=== PATIENT | female | born 1950 | race Caucasian/White ===

== ENCOUNTER 2020-11-12 09:14 | Outpatient (REF) | payer MEDICARE, OTHER, SELFPAY ==
[2020-11-12 10:32] LABS: Alanine Aminotransferase 27 U/L (0-31); Albumin Level 4.5 g/dL (3.5-5.0); Alkaline Phosphatase 81 U/L (39-117); Anion Gap 12 (12-20); Aspartate Amino Transferase 32 U/L (5-31); Bilirubin Total 0.4 mg/dL (0.0-1.0); Blood Urea Nitrogen 18 mg/dL (9-16); Calcium 9.8 mg/dL (8.4-10.2); Carbon Dioxide 30 mmol/L (22-29); Chloride 102 mmol/L (96-108); Cholesterol 251 mg/dL; Estimated Glomerular Filt Rate > 60; Glucose Fasting 101 mg/dL (60-99); HDL Cholesterol 63 mg/dL; LDL Cholesterol Calculated 169 mg/dl; Potassium 4.9 mmol/l (3.3-5.1); Sodium 139 mmol/L (135-145); Total Protein 7.8 g/dL (6.5-8.0); Triglycerides 98 mg/dL
[2020-11-12 10:48] LABS: Free T4 (Free Thyroxine) 1.17 ng/dL (0.71-1.85); Thyroid Stimulating Hormone 4.11 uIU/mL (0.32-4.0)
== END 2020-11-12 09:15 | disposition home or self-care (01) ==
LOC: HO.LAB 09:14
PROVIDERS: PCP Internal Medicine; Visit Provider Internal Medicine
DX: E78.00 Pure hypercholesterolemia, unspecified (principal); E03.9 Hypothyroidism, unspecified; E55.9 Vitamin D deficiency, unspecified
CPT/HCPCS: 36415; 80053; 80061; 82306; 84439; 84443

== ENCOUNTER 2021-01-10 08:16 | Outpatient (REF) | payer MEDICARE, OTHER, SELFPAY ==
[2021-01-10 09:35] LABS: Basophils Absolute Auto 0.1 X10*3/uL (0.0-0.2); Basophils Percent Auto 0.6 % (0-2); Eosinophils Absolute Auto 0.2 X10*3/uL (0.0-0.4); Eosinophils Percent Auto 2.4 % (0-4); Hematocrit 40.9 % (37-47); Hemoglobin 13.1 g/dl (12.0-16.0); Imm Gran Abs Auto 0.01 X10*3/uL (0.00-0.03); Imm Gran Pct Auto 0.1 % (0.0-0.4); Lymphocytes Absolute Auto 2.7 X10*3/uL (1.2-4.9); Lymphocytes Percent Auto 33.6 % (20-40); MANUAL DIFF FLAG NO; Mean Corpuscular Hemoglobin 30.8 pg (27.0-33.0); Mean Corpuscular Volume 96.2 fL (80-98); Mean Platelet Volume 10.2 fL (9.4-12.3); Monocytes Absolute Auto 0.7 X10*3/uL (0.1-1.2); Monocytes Percent Auto 9.4 % (2-11); Neutrophils Absolute Auto 4.3 X10*3/uL (2.0-8.3); Neutrophils Percent Auto 53.9 % (45-73); Platelet Count 415 X10*3/uL (160-400); Red Blood Count 4.25 X10*6/uL (4.20-5.50); Red Cell Distribution Width 14.8 % (11.0-16.0); White Blood Count 7.9 X10*3/uL (4.8-10.8)
[2021-01-10 10:09] LABS: Alanine Aminotransferase 20 U/L (0-31); Albumin Level 4.2 g/dL (3.5-5.0); Alkaline Phosphatase 98 U/L (39-117); Anion Gap 12 (12-20); Aspartate Amino Transferase 29 U/L (5-31); Bilirubin Total 0.3 mg/dL (0.0-1.0); Blood Urea Nitrogen 17 mg/dL (9-16); Calcium 8.9 mg/dL (8.4-10.2); Carbon Dioxide 27 mmol/L (22-29); Chloride 107 mmol/L (96-108); Cholesterol 168 mg/dL; Estimated Glomerular Filt Rate > 60; Glucose Random 106 mg/dL (60-115); HDL Cholesterol 49 mg/dL; LDL Cholesterol Calculated 99 mg/dl; Potassium 4.7 mmol/L (3.3-5.1); Sodium 141 mmol/L (135-145); Total Protein 7.2 g/dL (6.5-8.0); Triglycerides 100 mg/dL
[2021-01-10 10:31] LABS: Vitamin D 25-OH Total 23.7 ng/mL (>30)
== END 2021-01-10 08:17 | disposition home or self-care (01) ==
LOC: HO.LAB 08:16
PROVIDERS: Absent Provider Physician Assistant; PCP Internal Medicine; Visit Provider Internal Medicine
DX: E78.00 Pure hypercholesterolemia, unspecified (principal); E55.9 Vitamin D deficiency, unspecified
CPT/HCPCS: 36415; 80053; 80061; 82306; 85025

== ENCOUNTER 2021-02-01 08:32 | Outpatient (REF) | payer MEDICARE, OTHER, SELFPAY ==
--- NOTE | ~2021-02-01 | MM_ITS ---
EXAMINATION: MM SCREENING DIGITAL BREAST TOMOSYNTHESIS, BILATERAL CLINICAL INFORMATION: Screening. Asymptomatic. The lifetime risk of breast cancer based on the Tyrer-Cuzick Model is 6%. COMPARISON: Mammography: 11/15/2019, 11/09/2018, 09/29/2017 TECHNIQUE: Digital breast tomosynthesis is performed in both the craniocaudal and mediolateral oblique views along with computer-aided detection (CAD). Synthesized 2D images are generated from the tomosynthesis. FINDINGS: There are scattered areas of fibroglandular density (ACR BI-RADS breast composition Category b). There are no significant masses, abnormal calcifications, or other abnormalities. The axilla and skin contours are unremarkable. No significant changes from prior exams. MM/MM tomosynthesis screening BI IMPRESSION: No mammographic evidence of malignancy. ASSESSMENT: BI-RADS 1: Negative RECOMMENDATION: Routine annual mammography screening. This patient's information was entered into a reminder system with a target due date for their next mammogram.
== END 2021-02-01 08:33 | disposition home or self-care (01) ==
LOC: HO.MAMMO 08:32
PROVIDERS: PCP Internal Medicine; Visit Provider Internal Medicine
DX: Z12.31 Encounter for screening mammogram for malignant neoplasm of breast (principal)
CPT/HCPCS: 77063; 77067

== ENCOUNTER 2021-05-01 12:00 | Outpatient (REF) | payer MEDICARE, OTHER, SELFPAY ==
[2021-05-01 12:52] LABS: Influenza A PCR NEGATIVE (Negative); Influenza B PCR NEGATIVE (Negative); Resp Syncy Virus RNA Qual PCR NEGATIVE (Negative); SARS COV2 PCR INHOUSE NEGATIVE (Negative)
== END 2021-05-01 12:01 | disposition home or self-care (01) ==
LOC: HO.LNP 12:00
PROVIDERS: Visit Provider Internal Medicine
DX: R68.89 Other general symptoms and signs (principal); R51.9 Headache, unspecified; Z20.822 Contact with and (suspected) exposure to COVID-19
CPT/HCPCS: 0241U

== ENCOUNTER 2021-08-01 09:35 | Outpatient (REF) | payer MEDICARE, OTHER, SELFPAY ==
[2021-08-01 09:47] LABS: MANUAL DIFF FLAG NO
[2021-08-01 09:58] LABS: Basophils Absolute Auto 0.1 X10*3/uL (0.0-0.2); Eosinophils Absolute Auto 0.2 X10*3/uL (0.0-0.4); Eosinophils Percent Auto 3.6 % (0-4); Hematocrit 44.1 % (37-47); Imm Gran Abs Auto 0.02 X10*3/uL (0.00-0.03); Imm Gran Pct Auto 0.3 % (0.0-0.4); Lymphocytes Absolute Auto 2.7 X10*3/uL (1.2-4.9); Lymphocytes Percent Auto 43.2 % (20-40); Mean Corpuscular HGB Conc 31.7 g/dl (31.0-35.0); Mean Corpuscular Hemoglobin 30.1 pg (27.0-33.0); Mean Corpuscular Volume 94.8 fL (80-98); Mean Platelet Volume 10.4 fL (9.4-12.3); Monocytes Absolute Auto 0.7 X10*3/uL (0.1-1.2); Monocytes Percent Auto 10.6 % (2-11); Neutrophils Absolute Auto 2.6 X10*3/uL (2.0-8.3); Neutrophils Percent Auto 41.3 % (45-73); Platelet Count 372 X10*3/uL (160-400); Red Blood Count 4.65 X10*6/uL (4.20-5.50); Red Cell Distribution Width 15.6 % (11.0-16.0); White Blood Count 6.2 X10*3/uL (4.8-10.8)
[2021-08-01 10:29] LABS: Estimated Average Glucose 108 mg/dL; Hemoglobin A1c % 5.4 %
[2021-08-01 10:34] LABS: Alanine Aminotransferase 22 U/L (0-31); Albumin Level 4.1 g/dL (3.5-5.0); Alkaline Phosphatase 77 U/L (39-117); Anion Gap 11 (12-20); Aspartate Amino Transferase 30 U/L (5-31); Bilirubin Total 0.7 mg/dL (0.0-1.0); Blood Urea Nitrogen 19 mg/dL (9-16); Calcium 9.5 mg/dL (8.4-10.2); Carbon Dioxide 27 mmol/L (22-29); Chloride 108 mmol/L (96-108); Cholesterol 189 mg/dL; Estimated Glomerular Filt Rate > 60; Glucose Fasting 108 mg/dL (60-99); HDL Cholesterol 55 mg/dL; LDL Cholesterol Calculated 112 mg/dl; Potassium 4.5 mmol/L (3.3-5.1); Sodium 141 mmol/L (135-145); Total Protein 7.3 g/dL (6.5-8.0); Triglycerides 110 mg/dL
[2021-08-01 11:00] LABS: Free T4 (Free Thyroxine) 1.36 ng/dL (0.71-1.85); Thyroid Stimulating Hormone 0.69 uIU/mL (0.32-4.0); Vitamin D 25-OH Total 25.5 ng/mL (>30)
[2021-08-01 11:31] LABS: Creatinine Urine 104.76 mg/dL; Microalbum/Creatinine Ratio Ur 9.5 ug/mg cr
== END 2021-08-01 09:36 | disposition home or self-care (01) ==
LOC: HO.LAB 09:35
PROVIDERS: PCP Internal Medicine; Referring Provider Physician Assistant; Visit Provider Internal Medicine
DX: E78.00 Pure hypercholesterolemia, unspecified (principal); E03.9 Hypothyroidism, unspecified; R73.03 Prediabetes; E55.9 Vitamin D deficiency, unspecified
CPT/HCPCS: 36415; 80053; 80061; 82043; 82306; 83036; 84439; 84443; 85025

== ENCOUNTER 2022-11-03 08:25 | Outpatient (REF) | payer MEDICARE, OTHER, SELFPAY ==
[2022-11-03 08:45] LABS: MANUAL DIFF FLAG NO
[2022-11-03 08:54] LABS: Basophils Absolute Auto 0.1 X10*3/uL (0.0-0.2); Basophils Percent Auto 1.1 % (0-2); Eosinophils Absolute Auto 0.4 X10*3/uL (0.0-0.4); Eosinophils Percent Auto 6.8 % (0-4); Hematocrit 40.9 % (37.0-47.0); Hemoglobin 13.5 g/dl (12.0-16.0); Imm Gran Abs Auto 0.01 X10*3/uL (0.00-0.03); Imm Gran Pct Auto 0.2 % (0.0-0.4); Lymphocytes Absolute Auto 3.1 X10*3/uL (1.2-4.9); Lymphocytes Percent Auto 48.6 % (20-40); Mean Corpuscular Hemoglobin 31.3 pg (27.0-33.0); Mean Corpuscular Volume 94.7 fL (80.0-98.0); Monocytes Absolute Auto 0.6 X10*3/uL (0.1-1.2); Monocytes Percent Auto 9.1 % (2-11); Neutrophils Absolute Auto 2.2 x10*3/uL (2.0-8.3); Neutrophils Percent Auto 34.2 % (45-73); Platelet Count 385 X10*3/uL (160-400); Red Blood Count 4.32 X10*6/uL (4.20-5.50); Red Cell Distribution Width 14.9 % (11.0-16.0); White Blood Count 6.3 X10*3/uL (4.8-10.8)
[2022-11-03 09:26] LABS: Alanine Aminotransferase 33 U/L (0-31); Alkaline Phosphatase 93 U/L (39-117); Anion Gap 10 (12-20); Aspartate Amino Transferase 38 U/L (5-31); Bilirubin Total 0.4 mg/dL (0.0-1.0); Blood Urea Nitrogen 19 mg/dL (9-16); Calcium 9.3 mg/dL (8.4-10.2); Carbon Dioxide 26 mmol/L (22-29); Chloride 107 mmol/L (96-108); Cholesterol 217 mg/dL; Estimated Glomerular Filt Rate > 60; Glucose Fasting 128 mg/dL (60-99); HDL Cholesterol 58 mg/dL; LDL Cholesterol Calculated 127 mg/dl; Potassium 4.5 mmol/L (3.3-5.1); Sodium 138 mmol/L (135-145); Total Protein 7.1 g/dL (6.5-8.0); Triglycerides 162 mg/dL
[2022-11-03 09:45] LABS: Free T4 (Free Thyroxine) 0.87 ng/dL (0.71-1.85); Thyroid Stimulating Hormone 2.93 uIU/mL (0.32-4.0); Vitamin D 25-OH Total 19.8 ng/mL (>30)
== END 2022-11-03 08:26 | disposition home or self-care (01) ==
LOC: HO.LAB 08:25
PROVIDERS: Absent Provider Physician Assistant; PCP Internal Medicine; Visit Provider Internal Medicine
DX: E03.9 Hypothyroidism, unspecified (principal); E78.00 Pure hypercholesterolemia, unspecified; E55.9 Vitamin D deficiency, unspecified; L40.0 Psoriasis vulgaris; L29.8 Other pruritus; Z79.899 Other long term (current) drug therapy
CPT/HCPCS: 36415; 80053; 80061; 82306; 84439; 84443; 85025

== ENCOUNTER 2023-05-11 12:35 | Outpatient (REF) | payer MEDICARE, OTHER, SELFPAY ==
--- NOTE | ~2023-05-11 | MM_ITS ---
EXAMINATION: MM SCREENING DIGITAL BREAST TOMOSYNTHESIS, BILATERAL CLINICAL INFORMATION: Screening. Asymptomatic. The lifetime risk of breast cancer based on the Tyrer-Cuzick Model is 6.0%. COMPARISON: Mammography: This study is compared with prior exams dating back to 2017. TECHNIQUE: Digital breast tomosynthesis is performed in both the craniocaudal and mediolateral oblique views along with computer-aided detection (CAD). Synthesized 2D images are generated from the tomosynthesis. FINDINGS: There are scattered areas of fibroglandular density (ACR BI-RADS breast composition Category b). There are no significant masses, abnormal calcifications, or other abnormalities. MM/MM tomosynthesis screening BI IMPRESSION: No mammographic evidence of malignancy. ASSESSMENT: BI-RADS BI-RADS 1 - Negative RECOMMENDATION: Routine annual mammography screening. 1 year F/U This examination should not preclude the clinical evaluation of a suspicious palpable abnormality. This patient's information was entered into a reminder system with a target due date for their next mammogram.
== END 2023-05-11 12:36 | disposition home or self-care (01) ==
LOC: HO.MAMMO 12:35
PROVIDERS: PCP Internal Medicine; Visit Provider Internal Medicine
DX: Z12.31 Encounter for screening mammogram for malignant neoplasm of breast (principal)
CPT/HCPCS: 77063; 77067

== ENCOUNTER → 2023-05-11 12:45 | Outpatient (BNV) | payer MEDICARE, OTHER, SELFPAY | PROVIDERS: PCP Internal Medicine; Visit Provider Radiology Diagnostic Radiology | DX: Z12.31 Encounter for screening mammogram for malignant neoplasm of breast (principal) | CPT/HCPCS: 77063; 77067 ==

== ENCOUNTER 2023-07-26 11:33 | Outpatient (REF) | payer MEDICARE, OTHER, SELFPAY ==
[2023-07-26 11:55] LABS: MANUAL DIFF FLAG NO
[2023-07-26 12:01] LABS: Basophils Percent Auto 0.7 % (0-2); Eosinophils Absolute Auto 0.4 X10*3/uL (0.0-0.4); Eosinophils Percent Auto 5.8 % (0-4); Hematocrit 42.3 % (37.0-47.0); Hemoglobin 13.7 g/dl (12.0-16.0); Lymphocytes Absolute Auto 2.5 X10*3/uL (1.2-4.9); Mean Corpuscular HGB Conc 32.4 g/dl (31.0-35.0); Mean Corpuscular Hemoglobin 30.9 pg (27.0-33.0); Mean Corpuscular Volume 95.3 fL (80.0-98.0); Mean Platelet Volume 9.8 fL (9.4-12.3); Monocytes Absolute Auto 0.6 X10*3/uL (0.1-1.2); Monocytes Percent Auto 9.8 % (2-11); Neutrophils Absolute Auto 2.5 x10*3/uL (2.0-8.3); Neutrophils Percent Auto 41.7 % (45-73); Platelet Count 369 X10*3/uL (160-400); Red Blood Count 4.44 X10*6/uL (4.20-5.50); Red Cell Distribution Width 14.5 % (11.0-16.0)
[2023-07-26 13:09] LABS: Alanine Aminotransferase 20 U/L (0-31); Albumin Level 4.2 g/dL (3.5-5.0); Alkaline Phosphatase 96 U/L (39-117); Anion Gap 14 (12-20); Aspartate Amino Transferase 29 U/L (5-31); Bilirubin Direct 0.2 mg/dL (0.0-0.5); Bilirubin Total 0.5 mg/dL (0.0-1.0); Blood Urea Nitrogen 15 mg/dL (9-16); Calcium 9.5 mg/dL (8.4-10.2); Carbon Dioxide 25 mmol/L (22-29); Chloride 107 mmol/L (96-108); Estimated Glomerular Filt Rate > 60; Glucose Random 103 mg/dL (60-115); Potassium 4.5 mmol/L (3.3-5.1); Sodium 141 mmol/L (135-145); Total Protein 7.4 g/dL (6.5-8.0)
[2023-07-27 05:19] LABS: HBc Num1 0.06 S/CO (0.00-0.79); Hepatitis B Core Antibody Nonreactive (Nonreactive); Hepatitis B Surface Antigen Negative (Negative); ~HepC Num1 0.12 S/CO (0.00-0.79); ~Hepatitis B Surface Antibody REACTIVE (Nonreactive); ~Hepatitis C Antibody Nonreactive (Nonreactive)
[2023-07-28 19:34] LABS: TS Negative Control Passed; TS Panel A 0; TS Panel B 0; TS Positive Control Passed; TSpotTB Negative (Negative)
== END 2023-07-26 11:34 | disposition home or self-care (01) ==
LOC: HO.LAB 11:33
PROVIDERS: PCP Internal Medicine; Visit Provider Physician Assistant
DX: Z11.1 Encounter for screening for respiratory tuberculosis (principal); L40.0 Psoriasis vulgaris
CPT/HCPCS: 36415; 80048; 80076; 85025; 86481; 86704; 86706; 86803; 87340

== ENCOUNTER 2023-08-04 13:06 | Outpatient (REF) | payer MEDICARE, OTHER, SELFPAY | END 2023-08-04 13:07 | disposition home or self-care (01) | LOC: HO.MAMMO 13:06 | PROVIDERS: PCP Internal Medicine; Visit Provider Internal Medicine | DX: Z13.820 Encounter for screening for osteoporosis (principal); Z78.0 Asymptomatic menopausal state | CPT/HCPCS: 77080 ==

== ENCOUNTER 2023-12-31 07:48 | Outpatient (REF) | payer MEDICARE, OTHER, SELFPAY ==
[2023-12-31 08:08] LABS: MANUAL DIFF FLAG NO
[2023-12-31 08:54] LABS: Basophils Absolute Auto 0.1 X10*3/uL (0.0-0.2); Eosinophils Absolute Auto 0.5 X10*3/uL (0.0-0.4); Eosinophils Percent Auto 5.3 % (0-4); Hematocrit 44.2 % (37.0-47.0); Hemoglobin 14.6 g/dl (12.0-16.0); Imm Gran Abs Auto 0.01 X10*3/uL (0.00-0.03); Imm Gran Pct Auto 0.1 % (0.0-0.4); Lymphocytes Absolute Auto 4.6 X10*3/uL (1.2-4.9); Lymphocytes Percent Auto 51.7 % (20-40); Mean Corpuscular Hemoglobin 30.9 pg (27.0-33.0); Mean Corpuscular Volume 93.4 fL (80.0-98.0); Mean Platelet Volume 10.1 fL (9.4-12.3); Monocytes Absolute Auto 0.9 X10*3/uL (0.1-1.2); Monocytes Percent Auto 10.2 % (2-11); Neutrophils Absolute Auto 2.8 x10*3/uL (2.0-8.3); Neutrophils Percent Auto 31.7 % (45-73); Platelet Count 425 X10*3/uL (160-400); Red Blood Count 4.73 X10*6/uL (4.20-5.50); Red Cell Distribution Width 14.2 % (11.0-16.0); White Blood Count 8.9 X10*3/uL (4.8-10.8)
[2023-12-31 09:27] LABS: Estimated Average Glucose 123 mg/dL; Hemoglobin A1C 150.4285 umol/L; Hemoglobin A1c % 5.9 % (<6.0)
[2023-12-31 09:43] LABS: Alanine Aminotransferase 23 U/L (0-31); Albumin Level 4.3 g/dL (3.5-5.0); Alkaline Phosphatase 91 U/L (39-117); Anion Gap 12 (12-20); Aspartate Amino Transferase 31 U/L (5-31); Bilirubin Total 0.4 mg/dL (0.0-1.0); Blood Urea Nitrogen 15 mg/dL (9-16); Calcium 9.7 mg/dL (8.4-10.2); Carbon Dioxide 27 mmol/L (22-29); Chloride 107 mmol/L (96-108); Cholesterol 203 mg/dL (<200); Estimated Glomerular Filt Rate > 60; Glucose Fasting 113 mg/dL (60-99); HDL Cholesterol 58 mg/dL (>40); LDL Cholesterol Calculated 123 mg/dL (<100); Potassium 4.6 mmol/L (3.3-5.1); Sodium 141 mmol/L (135-145); Total Protein 7.7 g/dL (6.5-8.0); Triglycerides 112 mg/dL (<150)
[2023-12-31 09:49] LABS: Free T4 (Free Thyroxine) 1.38 ng/dL (0.71-1.85); Thyroid Stimulating Hormone 4.94 uIU/mL (0.32-4.0); Vitamin D 25-OH Total 30.5 ng/mL (>30)
== END 2023-12-31 07:49 | disposition home or self-care (01) ==
LOC: HO.LAB 07:48
PROVIDERS: PCP Internal Medicine; Visit Provider Internal Medicine
DX: E03.9 Hypothyroidism, unspecified (principal); E78.00 Pure hypercholesterolemia, unspecified; E55.9 Vitamin D deficiency, unspecified; R73.03 Prediabetes
CPT/HCPCS: 36415; 80053; 80061; 82306; 83036; 84439; 84443; 85025

== ENCOUNTER 2024-05-16 12:23 | Outpatient (REF) | payer MEDICARE, OTHER, SELFPAY | END 2024-05-16 12:24 | disposition home or self-care (01) | LOC: HO.MAMMO 12:23 | PROVIDERS: PCP Internal Medicine; Visit Provider Internal Medicine | DX: Z12.31 Encounter for screening mammogram for malignant neoplasm of breast (principal) | CPT/HCPCS: 77063; 77067 ==

== ENCOUNTER → 2024-05-16 12:30 | Outpatient (BNV) | payer MEDICARE, OTHER, SELFPAY | PROVIDERS: PCP Internal Medicine; Visit Provider Radiology Diagnostic Radiology | DX: Z12.31 Encounter for screening mammogram for malignant neoplasm of breast (principal) | CPT/HCPCS: 77063; 77067 ==

== ENCOUNTER 2025-01-29 08:23 | Outpatient (REF) | payer MEDICARE, OTHER, SELFPAY ==
[2025-01-29 08:36] LABS: MANUAL DIFF FLAG NO
[2025-01-29 10:00] LABS: Basophils Absolute Auto 0.1 X10*3/uL (0.0-0.2); Eosinophils Absolute Auto 0.3 X10*3/uL (0.0-0.4); Eosinophils Percent Auto 4.3 % (0-4); Hematocrit 43.5 % (37.0-47.0); Hemoglobin 13.9 g/dl (12.0-16.0); Imm Gran Abs Auto 0.01 X10*3/uL (0.00-0.03); Imm Gran Pct Auto 0.1 % (0.0-0.4); Lymphocytes Absolute Auto 3.1 X10*3/uL (1.2-4.9); Lymphocytes Percent Auto 44.3 % (20-40); Mean Corpuscular Hemoglobin 30.4 pg (27.0-33.0); Mean Corpuscular Volume 95.2 fL (80.0-98.0); Mean Platelet Volume 11.5 fL (9.4-12.3); Monocytes Absolute Auto 0.6 X10*3/uL (0.1-1.2); Neutrophils Absolute Auto 2.9 x10*3/uL (2.0-8.3); Neutrophils Percent Auto 41.3 % (45-73); Platelet Count 330 X10*3/uL (160-400); Red Blood Count 4.57 X10*6/uL (4.20-5.50); Red Cell Distribution Width 14.7 % (11.0-16.0)
[2025-01-29 10:14] LABS: Estimated Average Glucose 128 mg/dL; Hemoglobin A1c % 6.1 % (<6.0)
[2025-01-29 11:07] LABS: Alanine Aminotransferase 26 U/L (0-31); Alkaline Phosphatase 86 U/L (39-117); Anion Gap 11 (12-20); Aspartate Amino Transferase 36 U/L (5-31); Bilirubin Total 0.5 mg/dL (0.0-1.0); Blood Urea Nitrogen 16 mg/dL (9-16); Calcium 9.1 mg/dL (8.4-10.2); Carbon Dioxide 25 mmol/L (22-29); Chloride 108 mmol/L (96-108); Estimated Glomerular Filt Rate > 60; Free T4 (Free Thyroxine) 1.31 ng/dL (0.71-1.85); Glucose Random 112 mg/dL (60-115); Potassium 4.4 mmol/L (3.3-5.1); Sodium 140 mmol/L (135-145); Thyroid Stimulating Hormone 1.16 uIU/mL (0.32-4.0); Total Protein 7.1 g/dL (6.5-8.0); Vitamin D 25-OH Total 31.8 ng/mL (>30)
== END 2025-01-29 08:24 | disposition home or self-care (01) ==
LOC: HO.LAB 08:23
PROVIDERS: Visit Provider Internal Medicine
DX: E03.9 Hypothyroidism, unspecified (principal); E55.9 Vitamin D deficiency, unspecified; R73.03 Prediabetes; L40.9 Psoriasis, unspecified
CPT/HCPCS: 36415; 80053; 82306; 83036; 84439; 84443; 85025

== ENCOUNTER 2025-02-21 14:22 | Outpatient (AMB) | payer MEDICARE, OTHER, SELFPAY ==
--- NOTE | 2025-02-21 14:32 | MHC.PC.OV ---
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 Accompanied by: Self / Same As Patient Allergies Sulfa (Sulfonamide Antibiotics) Allergy (Severe, Verified 02/21/25 14:32) BURNING ITCHING sulfamethoxazole [From Bactrim] Allergy (Severe, Verified 02/21/25 14:32) BURNING /ITCHING ALL MUCOUS MEMBRANES trimethoprim [From Bactrim] Allergy (Severe, Verified 02/21/25 14:32) BURNING /ITCHING ALL MUCOUS MEMBRANES Tobacco use date assessed: 02/21/25 Fall risk assessment: No Falls in past year Last assessed Fall Risk: 02/21/25 Dental Screening Dental Screen Date: 02/21/25 Did you have a dental visit in the last 12 months?: Yes Did you have a dental problem in the last 6 months where you did not have access to dental care?: No PFSH Medical History (Updated 02/21/25 @ 15:31 by Akash Garcia MD) Hyperlipidemia Hypothyroidism Surgical History History of colonoscopy (~11/09/14) Family History (Updated 02/21/25 @ 14:52 by Isabel Davidson MA) Mother No problems noted. Father No problems noted. Social History Housing: House Patient Tobacco Use Status: Former Tobacco user e-Cigarette/Vaping Use: Former Use service: No Current occupational status: retired Cognitive needs: No Hearing needs: No Vision needs: Yes (reading glasses) Questionnaire PHQ-9 Over the last 2 weeks, how often have you been bothered by any of the following problems? 1. Little interest or pleasure in doing things: not at all 2. Feeling down, depressed, or hopeless: not at all 3. Trouble falling or staying asleep, or sleeping too much: not at all 4. Feeling tired or having little energy: not at all 5. Poor appetite or overeating: not at all 6. Feeling bad about yourself - or that you are a failure or have let yourself or your family down: not at all 7. Trouble concentrating on things, such as reading the newspaper or watching television: not at all 8. Moving or speaking so slowly that other people could have noticed. Or the opposite - being so fidgety or restless that you have been moving around a lot more than usual: not at all Source: Developed by Drs. Lev Newsome, Meli Vidal, Edu Fernández and colleagues, with an educational destinee from [employer]. Thrive Questionnaire Date Thrive assessed: 02/21/25 I am a: Patient Within the past 12 months, did the food you bought not last and you didn't have the money to get more?: Never true Within the past 12 months, did you worry whether your food would run out before you got money to buy more?: Never true Do you have trouble paying for medicines?: No Do you have trouble getting transportation to medical appointments?: No Do you have trouble paying your heating and electricity bill?: No Do you have trouble taking care of your child, family member or friend?: No Do you have trouble with day-to-day activities such as bathing, preparing meals, shopping, managing finances, etc.?: No Are you currently unemployed and looking for a job?: No Are you interested in more education?: No THRIVE Score: 0 AUDIT C Alcohol Use Questionnaire (AUDIT-C) 1. How often do you have a drink containing alcohol?: Monthly or less 2. How many drinks containing alcohol do you have on a typical day when you are drinking?: 1 or 2 3. How often do you have six or more drinks on one occasion?: Less than monthly Total Score: 2 MAVIS-7 AMB Questionnaire MAVIS-7 Date MAVIS - 7 assessed: 02/21/25 Feeling nervous, anxious, or on edge: 0 = Not at all Not being able to stop or control worryin = Not at all Worrying too much about different things: 0 = Not at all Trouble relaxin = Not at all Being so restless that it is hard to sit still: 0 = Not at all Becoming easily annoyed or irritable: 0 = Not at all Feeling afraid as if something awful might happen: 0 = Not at all Total MAVIS-7 score (0-4 normal; 5-9 mild; 10-14 moderate; 15-21 severe): 0 Source: Developed by Drs. Lev Newsome, Meli Vidal, Edu Fernández and colleagues, with an educational destinee from [employer]. Physical exam (Primary Care) Vital Signs: Last Vital Signs Temp 97.4 F 02/21/25 14:45 Pulse 73 02/21/25 14:45 BP 124/76 02/21/25 14:45 Pulse Ox 97 02/21/25 14:45 Oxygen Delivery Method Room Air 02/21/25 14:45 BMI result Body Mass Index 34.3 Tobacco/Smoking Status: Tobacco use Status Tobacco use date assessed 02/21/25 02/21/25 14:34 Patient Tobacco Use Status Former Tobacco user 02/21/25 14:53 e-Cigarette/Vaping Use Former Use 02/21/25 14:53 Thrive Assessment: Date of Thrive Assessment Date Thrive assessed 02/21/25 02/21/25 14:34 Coding Level of Care Code New Pt Level 4 (95382) Complex EM visit Add On G2211 Diagnoses Palpitations with regular cardiac rhythm R00.2 Hypothyroidism E03.9 Hyperlipidemia E78.5 Assessment & Plan Assessment & Plan (1) Palpitations with regular cardiac rhythm: Code(s): R00.2 - Palpitations Plan: EKG ordered. Will get a Holter monitor (2) Hypothyroidism: Code(s): E03.9 - Hypothyroidism, unspecified Category: Medical Plan: TSH in range (3) Hyperlipidemia: Code(s): E78.5 - Hyperlipidemia, unspecified Category: Medical Plan: BW revd with patient. Plan History of Present Illness The patient is a 74-year-old female presenting with intermittent palpitations. These episodes have been occurring over the last few months, with symptoms being particularly pronounced at night while trying to fall asleep. She reports experiencing both a pounding sensation and an irregular heartbeat, sometimes identifiable through self-assessment of her pulse. Physical exertion can precipitate these episodes, with one recent episode resulting in a heart rate of 130 beats per minute. Historically, the patient has been on thyroid medication since age [age], with no recent changes to her regimen. Blood work conducted in December, including thyroid function tests, returned normal results. Palpitation episodes are occasionally alleviated through relaxation and breathing exercises. Additionally, patient acknowledges that recent stressors, notably her ?s passing, may contribute to underlying anxiety, which she suspects could be related to her palpitations. 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 - Recently ; last July after prolonged illness, contributing to stress. - Mentions yard work as a form of physical activity. Review of Systems - Cardiovascular: Reports palpitations with episodic tachycardia and irregular heartbeat. - Endocrine: Denies issues, thyroid function previously checked and normal. - Psychological: Reports stress and anxiety symptoms, particularly related to recent bereavement. Physical Exam General: Cooperative and healthy appearing Nutritional Appearance: Well nourished Orientation/consciousness: Patient oriented x3 Limitations: No limitations Head: Normal to inspection General: Appearance normal, both eyes and all related structures Neck: Normal visual inspection Chest: Normal palpation of entire chest wall Respiratory: PVCs noted, extra beat observed. ormal respiratory effort Neurology: Patient oriented x3 Results - Past blood work in December: Normal thyroid function tests. Plan An EKG has been ordered to assess the patient?s current heart rhythm and any underlying abnormalities. In addition, an event monitor will be provided to record future episodes of increased heart rate. This evaluation aims to rule out any cardiac causes for her palpitations. While anxiety is suspected to contribute to the symptoms, confirmation is needed to exclude cardiac causes. Current thyroid management remains unchanged given past normal lab results. The patient is reminded to complete her colonoscopy screening which had been deferred. Follow-up plans will hinge on the diagnostic results from the EKG and monitor. Patient was informed and verbally consented to the use of an ambient scribe for clinic note documentation during this visit. Discussion Notes I discussed with the patient the potential for arrhythmia contributing to her palpitations and the importance of obtaining an EKG and event monitor to assess her heart rhythm. I explained the benefits of these tests in accurately diagnosing any cardiac abnormalities and reassured her that while anxiety might play a role, it is important to have a comprehensive approach. We also reviewed her previous blood work results, confirming her thyroid levels are stable and not a contributing factor to her symptoms. Lastly, I emphasized the importance of completing her preventive colonoscopy screening, briefly delayed in the past, to maintain her health. Patient Instructions - Proceed for EKG as soon as possible. - Await further instructions on event monitor setup for symptom recording. - Maintain relaxation techniques such as slow breathing if symptoms arise. - Confirm schedule for colonoscopy appointment. - Follow up or contact if experiencing increased frequency or severity of symptoms or other health concerns. - Refill prescriptions by contacting the pharmacy directly, not the office. Orders: Orders ECG 12 lead EKG Today R00.2 - Palpitations ECG 3 day holter monitor Today R00.2 - Palpitations
[2025-02-21 14:45] VITALS: BP 124/76; PULSE 73; TEMP 36.3; O2SAT 97; BMI 34.3
--- OUTSIDE RECORDS SUMMARY | 2025-02-21 17:17 | XMS_ITS | Patient Health Record ---
Author Organization [facility] Address [address] [facility] [address] [place] [id number] Care Team Providers Care Chief Substation Operator Name Role Phone Glenys Schmidt M.D. Primary Care Provider Rony Mcfarlane Jr Allergies Allergen (clinical drug ingredient) Drug/Non Drug Allergy documented on EMR Reaction Allergy Type Onset Date Status Sulfacet-R Unknown Drug Allergy Active Reason For Referral No Information Medications Medication SIG (Take, Route, Fr equency, Duration) Notes Start Date End Date Status OsmoPrep 1.102-0.398 GM 32 tablets Orall y over two days as directed for 2 day(s) 07/18/2014 Active Synthroid 112 MCG Orally Ac tive Vitamin D 1000 UNIT 1 tablet Orally Once a day Active Problems Problem Type SNOMED Code ICD Code Onset Dates Problem Status W/U Status Risk Notes Problem 877865622 Family history of colon cancer (V16.0) Active confirmed Problem 812397066 Colon cancer screening (V76.51) Active confirmed Plan Of Treatment Future Test Test Name Order Date COLONOSCOPY 07/18/2014 Next Appt Details Provider Name:Rony vieira Jr, 03/19/2025 10:40:00 AM, [address] [facility], [address], [place], [address], Insurance Providers Payer Name Payer Address Payer Phone Subscriber Number Group Number Insured Name Patient Relationship to Insured Coverage Start Date Coverage End Date MEDICARE OF 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
== END 2025-02-21 15:22 | disposition home or self-care (01) ==
LOC: HO.HMCHD 14:23
PROVIDERS: PCP Internal Medicine; Visit Provider Internal Medicine
DX: R00.2 Palpitations (principal); E03.9 Hypothyroidism, unspecified; E78.5 Hyperlipidemia, unspecified

== ENCOUNTER → 2025-02-21 14:22 | Outpatient (REF) | payer MEDICARE, OTHER, SELFPAY ==
--- NOTE | 2025-02-21 15:35 | ECG_ITS ---
Test Reason : palps Blood Pressure : */* mmHG Vent. Rate : 68 BPM Atrial Rate : 68 BPM P-R Int : 142 ms QRS Dur : 74 ms QT Int : 406 ms P-R-T Axes : -21 13 20 degrees QTcB Int : 431 ms Sinus rhythm with occasional Premature ventricular complexes Otherwise normal ECG When compared with ECG of 12-Sep-2003 12:28, Premature ventricular complexes are now Present Referred By: Akash Garcia Electronically Signed By: JOSEPHINE CRABTREE
[2025-02-21 15:55] LABS: MANUAL DIFF FLAG NO
[2025-02-21 16:40] LABS: Basophils Percent Auto 0.5 % (0-2); Eosinophils Absolute Auto 0.2 X10*3/uL (0.0-0.4); Eosinophils Percent Auto 2.4 % (0-4); Hematocrit 42.5 % (37.0-47.0); Hemoglobin 14.2 g/dl (12.0-16.0); Imm Gran Abs Auto 0.01 X10*3/uL (0.00-0.03); Imm Gran Pct Auto 0.1 % (0.0-0.4); Lymphocytes Absolute Auto 3.5 X10*3/uL (1.2-4.9); Lymphocytes Percent Auto 44.1 % (20-40); Mean Corpuscular HGB Conc 33.4 g/dl (31.0-35.0); Mean Corpuscular Hemoglobin 30.9 pg (27.0-33.0); Mean Corpuscular Volume 92.4 fL (80.0-98.0); Mean Platelet Volume 10.6 fL (9.4-12.3); Monocytes Absolute Auto 0.6 X10*3/uL (0.1-1.2); Monocytes Percent Auto 7.1 % (2-11); Neutrophils Absolute Auto 3.6 x10*3/uL (2.0-8.3); Neutrophils Percent Auto 45.8 % (45-73); Platelet Count 361 X10*3/uL (160-400); Red Cell Distribution Width 14.1 % (11.0-16.0); White Blood Count 7.9 X10*3/uL (4.8-10.8)
[2025-02-21 17:06] LABS: Alanine Aminotransferase 24 U/L (0-31); Albumin Level 4.2 g/dL (3.5-5.0); Alkaline Phosphatase 98 U/L (39-117); Anion Gap 13 (12-20); Aspartate Amino Transferase 40 U/L (5-31); Bilirubin Total 0.4 mg/dL (0.0-1.0); Blood Urea Nitrogen 16 mg/dL (9-16); Calcium 9.9 mg/dL (8.4-10.2); Carbon Dioxide 25 mmol/L (22-29); Chloride 105 mmol/L (96-108); Estimated Glomerular Filt Rate > 60; Glucose Random 82 mg/dL (60-115); Sodium 139 mmol/L (135-145); Total Protein 7.5 g/dL (6.5-8.0)
== END ==
LOC: HO.CARD 14:22
PROVIDERS: Absent Provider Physician Assistant; PCP Internal Medicine; Visit Provider Internal Medicine
DX: R00.2 Palpitations (principal); L40.0 Psoriasis vulgaris; Z79.899 Other long term (current) drug therapy; E03.9 Hypothyroidism, unspecified; E78.5 Hyperlipidemia, unspecified; Z11.1 Encounter for screening for respiratory tuberculosis
CPT/HCPCS: 36415; 80053; 85025; 86481; 93005; 99202

== ENCOUNTER → 2025-02-21 15:35 | Outpatient (BNV) | payer MEDICARE, OTHER, SELFPAY | PROVIDERS: Absent Provider Physician Assistant; PCP Internal Medicine; Visit Provider Internal Medicine | DX: I49.3 Ventricular premature depolarization (principal) | CPT/HCPCS: 93010 ==

== ENCOUNTER → 2025-02-26 09:28 | Outpatient (REF) | payer MEDICARE, OTHER, SELFPAY | LOC: HO.CARD 09:28 | PROVIDERS: PCP Internal Medicine; Visit Provider Internal Medicine | DX: R00.2 Palpitations (principal) | CPT/HCPCS: 93242 ==

== ENCOUNTER → 2025-02-26 09:30 | Outpatient (BNV) | payer MEDICARE, OTHER, SELFPAY | PROVIDERS: PCP Internal Medicine; Visit Provider Internal Medicine | DX: I47.10 Supraventricular tachycardia, unspecified (principal) | CPT/HCPCS: 93244 ==

== ENCOUNTER 2025-03-14 10:45 | Outpatient (AMB) | payer MEDICARE, OTHER, SELFPAY ==
[2025-03-14 09:28] VITALS: BP 124/76; PULSE 75; TEMP 36.2; O2SAT 98; BMI 34.3
--- NOTE | 2025-03-14 09:28 | A.OFFPC_ITS ---
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 Accompanied by: Self / Same As Patient Allergies Sulfa (Sulfonamide Antibiotics) Allergy (Severe, Verified 03/14/25 11:17) BURNING ITCHING sulfamethoxazole [From Bactrim] Allergy (Severe, Verified 03/14/25 11:17) BURNING /ITCHING ALL MUCOUS MEMBRANES trimethoprim [From Bactrim] Allergy (Severe, Verified 03/14/25 11:17) BURNING /ITCHING ALL MUCOUS MEMBRANES Medication List - Last Reconciled 03/14/25 by Akash Garcia MD acitretin 10 mg PO DAILY cholecalciferol (vitamin D3) 125 mcg PO DAILY ezetimibe 10 mg PO DAILY levothyroxine (Synthroid) 112 mcg PO DAILY Tobacco use date assessed: 03/14/25 Fall risk assessment: 1 Fall in past year Last assessed Fall Risk: 03/14/25 Dental Screening Dental Screen Date: 03/14/25 Did you have a dental visit in the last 12 months?: Yes Did you have a dental problem in the last 6 months where you did not have access to dental care?: No [facility] Medical History Hyperlipidemia Hypothyroidism Surgical History History of colonoscopy (~11/09/14) Family History (Updated 03/14/25 @ 10:57 by Isabel Davidson MA) Mother No problems noted. Father No problems noted. Social History Housing: House Patient Tobacco Use Status: Former Tobacco user e-Cigarette/Vaping Use: Former Use service: No Current occupational status: retired Cognitive needs: No Hearing needs: No Vision needs: Yes (reading glasses) Questionnaire PHQ-9 Over the last 2 weeks, how often have you been bothered by any of the following problems? 1. Little interest or pleasure in doing things: not at all 2. Feeling down, depressed, or hopeless: not at all 3. Trouble falling or staying asleep, or sleeping too much: not at all 4. Feeling tired or having little energy: not at all 5. Poor appetite or overeating: not at all 6. Feeling bad about yourself - or that you are a failure or have let yourself or your family down: not at all 7. Trouble concentrating on things, such as reading the newspaper or watching t elevision: not at all 8. Moving or speaking so slowly that other people could have noticed. Or the opposite - being so fidgety or restless that you have been moving around a lot more than usual: not at all 9. Thoughts that you would be better off or of hurting yourself in some way: not at all Total score: 0 Source: Developed by Drs. Lev Newsome, Meli Vidal, Edu Fernández and colleagues, with an educational destinee from [employer]. Thrive Questionnaire Date Thrive assessed: 03/14/25 I am a: Patient Within the past 12 months, did the food you bought not last and you didn't have the money to get more?: Never true Within the past 12 months, did you worry whether your food would run out before you got money to buy more?: Never true Do you have trouble paying for medicines?: No Do you have trouble getting transportation to medical appointments?: No Do you have trouble paying your heating and electricity bill?: No Do you have trouble taking care of your child, family member or friend?: No Do you have trouble with day-to-day activities such as bathing, preparing meals, shopping, managing finances, etc.?: No Are you currently unemployed and looking for a job?: No Are you interested in more education?: No THRIVE Score: 0 AUDIT C Alcohol Use Questionnaire (AUDIT-C) 1. How often do you have a drink containing alcohol?: Monthly or less 2. How many drinks containing alcohol do you have on a typical day when you are drinking?: 1 or 2 3. How often do you have six or more drinks on one occasion?: Less than monthly Total Score: 2 MAVIS-7 AMB Questionnaire MAVIS-7 Date MAVIS - 7 assessed: 03/14/25 Feeling nervous, anxious, or on edge: 0 = Not at all Not being able to stop or control worryin = Not at all Worrying too much about different things: 0 = Not at all Trouble relaxin = Not at all Being so restless that it is hard to sit still: 0 = Not at all Becoming easily annoyed or irritable: 0 = Not at all Feeling afraid as if something awful might happen: 0 = Not at all Total MAVIS-7 score (0-4 normal; 5-9 mild; 10-14 moderate; 15-21 severe): 0 Source: Developed by Drs. Lev Newsome, Meli Vidal, Edu Fernández and colleagues, with an educational destinee from [employer]. Physical exam (Primary Care) Vital Signs: Last Vital Signs Temp 97.1 F 03/14/25 09:28 Pulse 75 03/14/25 09:28 BP 124/76 03/14/25 09:28 Pulse Ox 98 03/14/25 09:28 Oxygen Delivery Method Room Air 03/14/25 09:28 BMI result Body Mass Index 34.3 Tobacco/Smoking Status: Tobacco use Status Tobacco use date assessed 03/14/25 03/14/25 09:33 Patient Tobacco Use Status Former Tobacco user 03/14/25 09:33 e-Cigarette/Vaping Use Former Use 03/14/25 09:33 PHQ-9: PHQ-9 Score PHQ-9: Total score 0 03/14/25 10:57 Thrive Assessment: Date of Thrive Assessment Date Thrive assessed 03/14/25 03/14/25 09:33 Coding Level of Care Code Est Pt Level 4 (86112) Complex EM visit Add On G2211 Diagnoses Palpitation R00.2 Assessment & Plan Assessment & Plan (1) Palpitation: Code(s): R00.2 - Palpitations Plan: History of Present Illness The patient is a 74-year-old female presenting with daily palpitations, specifically feeling extra heartbeats prominently at night. Her symptoms have been persistent since approximately December or December, prompting concern about potential cardiac issues. Although the episodes are frequent, the Holter monitor results showed extrasystoles without significant arrhythmia or atrial fibri llation. Accompanying her palpitations, she experiences fatigue and dizziness after exercise, impacting her ability to remain active. The patient notes that a stress test was conducted over 20 years ago and expresses interest in returning to her exercise routine with self-regulated pacing. 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 [employer] - Desires to return to active lifestyle, specifically exercise classes - Indicates cautious resumption of activities due to symptomatic concerns - Familiarity with medication management and insurance procedures from professional experience Review of Systems - Cardiovascular: Reports palpitations and extra beats - Neurological: Denies syncope; Reports dizziness post-exercise - Musculoskeletal: Reports fatigue after exercise Physical Exam General: Cooperative and healthy appearing Nutritional Appearance: Well nourished Orientation/consciousness: Patient oriented x3 Limitations: No limitations Head: Normal to inspection General: Appearance normal, both eyes and all related structures Neck: Normal visual inspection Chest: Normal palpation of entire chest wall Respiratory: N ormal respiratory effort Neurology: Patient oriented x3, reports dizziness after exercise. Results - Tests: Holter monitor showing extrasystoles without atrial fibrillation or significant arrhythmia. Plan 1. Palpitations - Prescribe beta-blockers (propranolol or atenolol) to manage extra beats. - Encourage gradual return to exercise, monitoring for symptoms. - Schedule stress test if further assurance needed. - Follow-up appointment arranged. Discussion Notes During the visit, I discussed the patient's concerns about experiencing palpitations and the findings of the Holter monitor, which showed extra beats without any significant arrhythmia or atrial fibrillation. I explained that these are common and do not indicate an underlying heart problem. We discussed the option of a beta-troy, such as propranolol or atenolol, to help manage the sensation of extra beats, and the potential adjustments based on her insurance coverage. Exercise activities should be gradually resumed with self- pacing to assess tolerance. The patient expressed interest in foregoing a stress test for now in favor of resuming her routine gradually. Options for follow-up visits were addressed, and a plan was made for a fall appointment, leaving room for stress test considerations should the need arise later. Patient Instructions - Take prescribed medication (propranolol or atenolol) once daily in the evening. - Gradually resume exercise, watching for any symptoms like dizziness or excessive fatigue. - Contact if uncomfortable symptoms persist or worsen. - Keep upcoming fall appointment for follow-up. - Consider a stress test in the future if further cardiac reassurances are needed. - Call the office if there are new concerns or questions about the treatment plan.
--- OUTSIDE RECORDS SUMMARY | 2025-03-14 11:48 | XMS_ITS | Patient Health Record ---
Author Organization [facility] Address [address] [place] [address] Care Team Providers Care Watch Repairer Name Role Phone Glenys Schmidt M.D. Primary [...] Problem Status W/U Status Risk Notes Problem [id number] Family history of colon cancer (V16.0) Active confirmed Problem [id number] Colon cancer screening (V76.51) Active confirmed Plan Of Treatment Future Test Test Name Order Date COLONOSCOPY 07/18/2014 Next Appt Details Provider Name:Rony vieira Jr, 03/19/2025 10:40:00 AM, [address], [address], [place], [address], Insurance Providers Payer Name Payer Address Payer Phone Subscriber Number Group Number Insured Name Patient Relationship to Insured Coverage Start Date Coverage End Date MEDICARE OF [facility] [address] [place] [address] [id number] BRANT ESPITIA Self - patient is the insured [address] [place] [address] [address] [place] [address] [id number] BRANT ESPITIA Self - patient is the insured 4 Medical (General) History Medical History History ICD Code colonoscopy 03-01-2009 colon polyps hypothyroidis with history of Ger' s thyroiditis nephrolithiasis status post pyelolithoto my Denies [place],DM,CVA,Lung disease,renal dise ase Surgical History Surgery Date(Month/Year) left nephrectomy splenectomy distal pancreatectomy adrenalectomy 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
== END 2025-03-14 11:12 | disposition home or self-care (01) ==
LOC: HO.HMCHD 10:45
PROVIDERS: PCP Internal Medicine; Visit Provider Internal Medicine
DX: R00.2 Palpitations (principal)

== ENCOUNTER → 2025-03-14 10:45 | Outpatient (BNVA) | payer MEDICARE, OTHER, SELFPAY | PROVIDERS: PCP Internal Medicine; Visit Provider Internal Medicine | DX: R00.2 Palpitations (principal) | CPT/HCPCS: 99212 ==

== ENCOUNTER 2025-04-10 09:24 | Day surgery (SDC) | payer MEDICARE, OTHER, SELFPAY ==
--- OUTSIDE RECORDS SUMMARY | 2025-03-19 12:56 | XMS_ITS ---
Author Organization [facility] Address [address] [place] [phone] Care Team Providers Care Division Sergeant Name Role Phone JANET JOSEPH Primary Care Provider Rony Stokes Jr Allergies Allergen (clinical drug ingredient) Drug/Non Drug Allergy documented on EMR Reaction Allergy Type Onset Date Status Sulfacet-R Unknown Drug Allergy Active REASON FOR VISIT Patient presents today for a RECALL COLONOSCOPY Medications Medication SIG (Take, Route, Fr equency, Duration) Notes Start Date End Date Status Skyrizi Pen 150 MG/ML Subcutaneous for 84 Days Active Acitretin 10 MG TAKE 1 CAPSULE DAILY Oral for 30 Days Active Synthroid 112 MCG Orally Ac tive Vitamin D 1000 UNIT 1 tablet Orally Once a day Active Ezetimibe 10 MG TAKE 1 TABLET BY SAV TH EVERY DAY Oral for 90 Days Active Vital Signs Temperature 97.8 degrees Fahrenheit 03/19/20 25 Blood pressure systolic 001 mm Hg 03/19/20 25 Blood pressure diastolic 01 mm Hg 025 Height 59 in 03/19/2025 Weight 168.2 lbs 03/19/2025 BMI 33.97 kg/m2 03/19/2025 Encounters Encounter Location Date Provider Diagnosis [facility] [address] [place] [phone] 03/19/2025 Rony Brunson Jr Encounter for screening for malignant neoplasm of colon Z12.11 Assessments Encounter Date Diagnosis (ICD Code) Assessment Notes Treatment Notes Treatment Clinical Notes Section Notes 03/19/2025 Encounter for screening for malignant neoplasm of colon (ICD-10 - Z12.11) Plan Of Treatment Future Test Test Name Order Date COLONOSCOPY 03/19/2025 Next Appt Details Provider Name:Rony Alvarez dariel , 04/10/2025 12:40:00 PM, [address] [place] [address] , [place], [place], [phone], Progress Notes * BRANT ESPITIADOB:1950 (74 yo F)Acc No.[id number]:03/19/2025 Progress Notes Patient:?BRANT ESPITIA Provider:?Rony Brunson MD :1950???Age:74 Y???Sex:Female D ate:03/19/2025 Address:[address] [place], [place] [id number] Pcp:JANET JOSEPH Subjective: * Chief Complaints: * ???1. Patient presents today for a RECALL COLONOSCOPY. * Medical History:?Colonoscopy 03-01-2009, Colon polyps, hypothyroidis with history of Ger's thyroiditis, Nephrolithiasis status post pyelolithotomy, Denies [place],DM,CVA,Lung disease,renal disease. 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 * Family History:?Father: dece ased, diagnosed with Colon cancer.?Mother: yrs.?Siblings: sister had colon polyps, diagnosed with Colon polyps.? No family history of liver cancer. * Social History:?Tobacco Use:?Tobacco Use/Smoking?Are you a: nonsmoker.?Drugs/Alcohol:?Alcohol Screen?Points: 4, Interpretation: Positive.?Miscellaneous:?Marital status: . Occupation: retired. * Medications:?Taking Vitamin D 1000 UNIT Tablet 1 tablet Orally Once a day , Taking Synthroid 112 MCG Tablet Orally , Taking Acitretin 10 MG Capsule TAKE 1 CAPSULE DAILY Oral , Taking Ezetimibe 10 MG Tablet TAKE 1 TABLET BY MOUTH EVERY DAY Oral , Taking Skyrizi Pen 150 MG/ML Solution Auto-injector Subcutaneous , Discontinued OsmoPrep 1.102-0.398 GM Tablet 32 tablets Orally over two days as directed * Allergies:?Sulfacet-R. Objective: * Vitals:?Wt: 168.2 lbs, Ht: 5 9 in, BMI: 33.97 Index, BP: 001/01 mm Hg, Temp: 97.8, Wt-k.3. Assessment: * Assessment: 1.?Encounter for screening f or malignant neoplasm of colon - Z12.11??? Plan: * Treatment: * Preventive Medicine:? ??Counseling:?Care goal follow-up plan:?Above Normal BMI Follow-up?Dietary management education, guidance, and counseling,?BMI management provided?Yes.? ??Urinary Incontinence:?Urinary Incontinence?Assessment:?Present,?Plan of care documented:?Yes,?Type of plan of care:?Bladder training.? ??Screenings:?Fall Risk Screening?Fall Risk Assessment:?Two or more falls with injury in the past year,?Screening:?Two or more falls with injury in the past year,?Assessment:?Not performed, no reason specified,?Plan of Care:?Documented,?Type of fall plan of care:?Balance, strength and gait training or instruction provided.? * * The named appointment provid er may or may not be the originator of this progress note, and it is not deemed complete until electronically signed by the appointment provider. Sign off status: Pending * Provider:?Rony Brunson MD Date:?0 03/19/2025 Generated for Jie park/Radha/Nabilitting on:?03/19/2025 12:55 PM EDT
--- OUTSIDE RECORDS SUMMARY | 2025-03-19 12:56 | XMS_ITS | Patient Health Record ---
Author Organization [facility] Address [address] [place] [address] Care Team Providers Care Security Representative Name Role Phone JAKEJACKJANET Primary Care Provider Rony Stokes Jr Unavailable [phone] Allergies Allergen (clinical drug ingredient) Drug/Non Drug Allergy documented on EMR Reaction Allergy Type Onset Date Status Sulfacet-R Unknown Drug Allergy Active Reason For Referral No Information Medications Medication SIG (Take, Route, Fr equency, Duration) Notes Start Date End Date Status Skyrizi Pen 150 MG/ML Subcutaneous for 84 Days Active Ezetimibe 10 MG TAKE 1 TABLET BY SAV TH EVERY DAY Oral for 90 Days Active Acitretin 10 MG TAKE 1 CAPSULE DAILY Oral for 30 Days Active Synthroid 112 MCG Orally Ac tive Vitamin D 1000 UNIT 1 tablet Orally Once a day Active Immunizations Vaccine Route Administration Date Status Comme nts Influenza Unknown 08/15/2024 Administered Problems Problem Type SNOMED Code ICD Code Onset Dates Problem Status W/U Status Risk Notes Problem [id number] Family history of colon cancer (V16.0) Active confirmed Problem Screening for malignant neoplasm of colon (581139715) Encounter for screening for malignant neoplasm of colon (Z12.11) Active confirmed Vital Signs Temperature 97.8 degrees Fahrenheit 03/19/2025 Blood pressure diastolic 01 mm Hg 03/19/2025 Height 59 in 03/19/2025 Blood pressure systolic 001 mm Hg 03/19/2025 Weight 168.2 lbs 03/19/2025 BMI 33.97 kg/m2 03/19/2025 Encounters Encounter Location Date Provider Diagnosis [facility] [address] [place] [address] 03/19/2025 Rony Brunson Jr Encounter for screening for malignant neoplasm of colon Z12.11 Assessments Encounter Date Diagnosis (ICD Code) Assessment Notes Treatment Notes Treatment Clinical Notes Section Notes 03/19/2025 Encounter for screening for malignant neoplasm of colon (ICD-10 - Z12.11) Plan Of Treatment Future Test Test Name Order Date COLONOSCOPY 07/18/2014 COLONOSCOPY 03/19/2025 Next Appt Details Provider Name:Rony vieira Jr, 04/10/2025 12:40:00 PM, [address] [facility] [facility] , [place], [place], [phone], Insurance Providers Payer Name Payer Address Payer Phone Subscriber Number Group Number Insured Name Patient Relationship to Insured Coverage Start Date Coverage End Date MEDICARE OF [place] [address] [place] [address] [id number] BRANT ESPITIA Self - patient is the insured [address] [place] [address] [address] [place] [address] [id number] BRANT ESPITIA Self - patient is the insured 4 Medical (General) History Medical History History ICD Code colonoscopy 03-01-2009 colon polyps hypothyroidis with history of Ger' s thyroiditis nephrolithiasis status post pyelolithoto my Denies [place],DM,CVA,Lung disease,renal dise ase Surgical History Surgery Date(Month/Year) Incisional hernia satus post attempted repair, which was unsuccessful 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
[2025-04-06 14:26] VITALS: BMI 34.0
--- NOTE | 2025-04-09 09:02 | HO.ANESPROP2 ---
Documented by User: Radha Martin NP 04/09/25 09:06 HPI - Anesthesia Eval Consult details Narrative: 74yo F for Colonoscopy PMFSH Active Problems Active Problems: All Active Problems Hyperlipidemia (Acute) Hypothyroidism (Acute) Past Medical History Medical History Incisional hernia Palpitations Psoriasis Nephrolithiasis Hyperlipidemia Hypothyroidism Family History Family History Mother No problems noted. Father No problems noted. Surgical History Surgical History History of hysterectomy History of bowel resection (1987) H/O total adrenalectomy (1987) History of pancreatectomy (1987) Hx of splenectomy (1987) H/O left nephrectomy (1987) History of colonoscopy (~11/09/14) Social History Social History Household Members Other:: adult son Housing: House Are you a primary critical care nurse specialist to a significant other at home: No Do you presently have visiting nurse or other home services: No Patient Tobacco Use Status: Former Tobacco user Tobacco use type: Cigarette e-Cigarette/Vaping Use: Former Use Use of substances other than those prescribed or required for medical reasons: No Have you been hit, kicked, punched, or otherwise hurt by someone within the past year? If so, by whom?: No Are you DNR?: No Advance Directives: No Advance Directives Information Provided: Yes Advance Directives on File: No Poor oral hygiene: No service: No Current occupational status: retired Cognitive needs: No Hearing needs: No Vision needs: Yes (reading glasses) Meds Allergies Allergy/AdvReac Type Severity Reaction Status Date / Time Sulfa (Sulfonamide Allergy Severe BURNING Verified 04/10/25 09:56 Antibiotics) ITCHING sulfacetamide Allergy Severe Burning, Verified 04/10/25 09:56 [From Sulfacet-R] itching sulfamethoxazole Allergy Severe BURNING Verified 04/10/25 09:56 [From Bactrim] /ITCHING ALL MUCOUS MEMBRANES sulfur [From Sulfacet-R] Allergy Severe burning, Verified 04/10/25 09:56 itching trimethoprim [From Bactrim] Allergy Severe BURNING Verified 04/10/25 09:56 /ITCHING ALL [employer]UC[employer] MEMBRANES Home Medications ?Medication ?Instructions ?Recorded ?Confirmed ?Last Taken ?Type cholecalciferol (vitamin D3) 125 125 mcg PO DAILY 02/21/25 04/10/25 Unknown History mcg (5,000 unit) capsule ezetimibe 10 mg tablet 10 mg PO DAILY 02/21/25 04/10/25 Unknown History levothyroxine 112 mcg tablet 112 mcg PO DAILY 02/21/25 04/10/25 04/10/25 History (Synthroid) risankizumab-rzaa 150 mg/mL 150 mg subcut Q12W 04/06/25 04/10/25 Unknown History subcutaneous pen injector (Skyrizi) atenolol 25 mg tablet 25 mg PO BEDTIME 04/09/25 04/10/25 04/09/25 History Exam Height,Weight and Vital Signs: Height 4 ft 11 in Weight 76.294 kg Pertinent Lab Results Pertinent Lab Results: Laboratory Tests 02/21/25 15:54 WBC 7.9 Hgb 14.2 Hct 42.5 Plt Count 361 Sodium 139 Potassium 4.0 Chloride 105 Carbon Dioxide 25 BUN 16 Creatinine 0.77 Narrative Narrative: Holter 01/2025 Total monitoring time 3 days. Underlying rhythm is sinus with an average rate of 77/Min. Supraventricular ectopy noted with a burden of 0.7%. Frequent ventricular ectopy with a burden of 3.9%. Rare couplets, bigeminy, trigeminy. No significant pauses or high-grade AV blocks. Palpitations in patient diary mostly correlates with ventricular ectopy; on one occasion with supraventricular ectopy. EKG 01/2025 Vent. Rate : 68 BPM Atrial Rate : 68 BPM P-R Int : 142 ms QRS Dur : 74 ms QT Int : 406 ms P-R-T Axes : -21 13 20 degrees QTcB Int : 431 ms Sinus rhythm with occasional Premature ventricular complexes Otherwise normal ECG When compared with ECG of 12-Sep-2003 12:28, Premature ventricular complexes are now Present Assessment and Plan Assessment Anesthesia Assessment: Chart Reviewed Documented by User: Sushila Pelaez MD 04/10/25 10:22 [facility] Past Medical History Medical History Incisional hernia Palpitations Psoriasis Nephrolithiasis Hyperlipidemia Hypothyroidism Family History Family History Mother No problems noted. Father No problems noted. Family history of problems with anesthesia: No Surgical History Surgical History History of hysterectomy History of bowel resection (1987) H/O total adrenalectomy (1987) History of pancreatectomy (1987) Hx of splenectomy (1987) H/O left nephrectomy (1987) History of colonoscopy (~11/09/14) History of Problems with Anesthesia: No Social History Social History Household Members Other:: adult son Housing: House Are you a primary critical care nurse specialist to a significant other at home: No Do you presently have visiting nurse or other home services: No Patient Tobacco Use Status: Former Tobacco user Tobacco use type: Cigarette e-Cigarette/Vaping Use: Former Use Use of substances other than those prescribed or required for medical reasons: No Have you been hit, kicked, punched, or otherwise hurt by someone within the past year? If so, by whom?: No Are you DNR?: No Advance Directives: No Advance Directives Information Provided: Yes Advance Directives on File: No Poor oral hygiene: No service: No Current occupational status: retired Cognitive needs: No Hearing needs: No Vision needs: Yes (reading glasses) Meds Allergies Allergy/AdvReac Type Severity Reaction Status Date / Time Sulfa (Sulfonamide Allergy Severe BURNING Verified 04/10/25 09:56 Antibiotics) ITCHING sulfacetamide Allergy Severe Burning, Verified 04/10/25 09:56 [From Sulfacet-R] itching sulfamethoxazole Allergy Severe BURNING Verified 04/10/25 09:56 [From Bactrim] /ITCHING [employer] sulfur [From Sulfacet-R] Allergy Severe burning, Verified 04/10/25 09:56 itching trimethoprim [From Bactrim] Allergy Severe BURNING Verified 04/10/25 09:56 /ITCHING ALL MUCOUS MEMBRANES Home Medications ?Medication ?Instructions ?Recorded ?Confirmed ?Last Taken ?Type cholecalciferol (vitamin D3) 125 125 mcg PO DAILY 02/21/25 04/10/25 Unknown History mcg (5,000 unit) capsule ezetimibe 10 mg tablet 10 mg PO DAILY 02/21/25 04/10/25 Unknown History levothyroxine 112 mcg tablet 112 mcg PO DAILY 02/21/25 04/10/25 04/10/25 History (Synthroid) risankizumab-rzaa 150 mg/mL 150 mg subcut Q12W 04/06/25 04/10/25 Unknown History subcutaneous pen injector (Skyrizi) atenolol 25 mg tablet 25 mg PO BEDTIME 04/09/25 04/10/25 04/09/25 History Exam Airway Mallampati Class: II TM Dist: >3cm Neck ROM: Full Heart: rrr Lungs: cta Assessment and Plan Assessment Anesthesia Assessment: Anesthesia Plan Discussed Final Anesthetic Review Family History of Problems with Anesthesia: No History of Problems with Anesthesia: No NPO: Yes ASA Class: II Final Preanesthetic Review: No Changes in Pt Med Stat, Meds/Allgs Chart Reviewed, Consent Obtained/Reviewed and Anes Risks/Benef Reviewed Patient Risk: Low Procedure Risk: Low Anesthetic Plan Anesthetic Plan: MAC:
[2025-04-09 09:34] VITALS: BMI 33.3
[2025-04-10 09:48] VITALS: BP 140/60; PULSE 60; RESP 16; TEMP 37.1; O2SAT 99
[2025-04-10] MEDS: Lactated Ringers 1,000 ML 100 ML IVCONT (10:05)
--- NOTE | 2025-04-10 10:10 | MHC.SHP ---
Pre-Procedural Eval Section A - 24 Hr Update-Section A only Date of Service: 04/10/25 The patient is an INPATIENT: No Changes since office visit: No Cold of Flu in the past 2 weeks, No New Medical Problems, No Changes in Medication and No Patient answered all questions The patient has been examined within 24 hours of the surgical procedure. The History & Physical has been completed within 30 days and I have reviewed it.: Yes Section B - Complete if H&P > 30 days Chief Complaint: Encounter for screening for malignant neoplasm of Allergies: Allergies Allergy/AdvReac Type Severity Reaction Status Date / Time Sulfa (Sulfonamide Allergy Severe BURNING Verified 04/10/25 09:56 Antibiotics) ITCHING sulfacetamide Allergy Severe Burning, Verified 04/10/25 09:56 [From Sulfacet-R] itching sulfamethoxazole Allergy Severe BURNING Verified 04/10/25 09:56 [From Bactrim] /ITCHING ALL [employer]ANES sulfur [From Sulfacet-R] Allergy Severe burning, Verified 04/10/25 09:56 itching trimethoprim [From Bactrim] Allergy Severe BURNING Verified 04/10/25 09:56 /ITCHING [employer]ANES Plan I have reviewed the history and physical and performed a pertinent physical examination on my patient. No changes have occurred unless specified. Time Spent With Patient Time: Total time managing care of this patient today ____ minutes.
[2025-04-10 10:49] VITALS: BP 117/63; PULSE 61; RESP 12; TEMP 36.6; O2SAT 94
--- NOTE | 2025-04-10 10:59 | OP_ITS ---
DATE OF SERVICE: 04/10/2025 SURGEON: Rony Brunson MD INDICATIONS: Colon cancer screening. PREOPERATIVE DIAGNOSIS: POSTOPERATIVE DIAGNOSIS: PROCEDURE PERFORMED: Colonoscopy to the terminal ileum with snare polypectomy. ESTIMATED BLOOD LOSS: COMPLICATIONS: ANESTHESIA: Medications, monitored anesthesia care. ASSISTANTS: SPECIMENS: DESCRIPTION OF PROCEDURE: A history and physical was performed. The risks and benefits of the procedure were explained to the patient. Informed consent was obtained. The patient was placed in the left lateral decubitus position. A digital rectal exam was performed and was found to be normal. The Olympus pediatric video colonoscope was introduced into the rectum and advanced to the cecum. The cecum was identified by transillumination, palpation, and identification of ileocecal valve. Examination was performed. The scope was removed. She tolerated the procedure well and was returned to recovery room in stable condition. FINDINGS: The terminal ileum was examined and appeared normal. The visualized colonic mucosa was normal. The quality of the prep was good. There was a patent surgical anastomosis at about 45 cm from the anal verge, just below, was a 6 mm polyp, which was removed with a cold snare and recovered via suction. There was mild sigmoid diverticulosis. The sigmoid was somewhat tortuous. IMPRESSION: Colon polyp. RECOMMENDATION: Follow up the biopsy results. MD SHAW Brunner/PAULIE / [id number]
[2025-04-10 11:03] VITALS: BP 120/60; PULSE 55; RESP 16; TEMP 36.4; O2SAT 100
== END 2025-04-10 11:42 | disposition home or self-care (01) ==
PROVIDERS: Visit Provider Internal Medicine Gastroenterology
PROC: 0DJD8ZZ Inspection of Lower Intestinal Tract, Via Natural or Artificial Opening Endoscopic (ICD-10-PCS; CPT 45378; principal; 2025-04-10 11:00)
DX: Z12.11 Encounter for screening for malignant neoplasm of colon (principal); D12.4 Benign neoplasm of descending colon; K57.30 Diverticulosis of large intestine without perforation or abscess without bleeding; E78.5 Hyperlipidemia, unspecified; E03.9 Hypothyroidism, unspecified; R00.2 Palpitations; L40.9 Psoriasis, unspecified; Z90.49 Acquired absence of other specified parts of digestive tract; Z98.0 Intestinal bypass and anastomosis status; E89.6 Postprocedural adrenocortical (-medullary) hypofunction; Z87.442 Personal history of urinary calculi; Z90.5 Acquired absence of kidney; Z90.81 Acquired absence of spleen; Z90.411 Acquired partial absence of pancreas; Z79.899 Other long term (current) drug therapy; Z88.2 Allergy status to sulfonamides; Z87.891 Personal history of nicotine dependence
CPT/HCPCS: 45385; 88305

== ENCOUNTER 2025-06-21 12:03 | Outpatient (REF) | payer MEDICARE, OTHER, SELFPAY | END 2025-06-21 12:04 | disposition home or self-care (01) | LOC: HO.MAMMO 12:03 | PROVIDERS: PCP Internal Medicine; Visit Provider Internal Medicine | DX: Z12.31 Encounter for screening mammogram for malignant neoplasm of breast (principal) | CPT/HCPCS: 77063; 77067 ==

== ENCOUNTER → 2025-06-21 12:15 | Outpatient (BNV) | payer MEDICARE, OTHER, SELFPAY | PROVIDERS: PCP Internal Medicine; Visit Provider Internal Medicine | DX: Z12.31 Encounter for screening mammogram for malignant neoplasm of breast (principal) | CPT/HCPCS: 77063; 77067 ==

== ENCOUNTER 2025-08-22 13:42 | Outpatient (AMB) | payer MEDICARE, OTHER, SELFPAY ==
--- OUTSIDE RECORDS SUMMARY | 2025-04-10 07:00 | XMS_ITS ---
Author Organization [facility] Address [address] [place] [address] Care Team Providers Care Rat Breeder Name Role Phone JANET JOSEPH Primary Care Provider Rony Stokes Jr REASON FOR VISIT screening Encounters Encounter Location Date Provider Diagnosis [facility] [address] [place] [phone] 04/10/2025 Rony Brunson Jr Colon cancer screening [...] Notes * BRANT ESPITIADOB:1950 (75 yo F)Acc No.[id number]:04/10/2025 COLON WITH MAC Patient: Gris WOO BRANT Provider: Ranjit Brunson MD :1950 A ge:74 Y S ex:Female Date:04/10/2025 Address: [id number] Pcp:JANET JOSEPH Subjective: * Chief Complaints: * [...] 04/10/2025 Generated for Jie park/Radha/Nabilitting on: 1 07:28 PM EDT
--- NOTE | 2025-08-22 13:49 | A.OFFPC_ITS ---
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: No Accompanied by: Self / Same As Patient Allergies Sulfa (Sulfonamide Antibiotics) Allergy (Severe, Verified 08/22/25 13:50) BURNING ITCHING sulfacetamide (From Sulfacet-R) Allergy (Severe, Verified 08/22/25 13:50) Burning, itching sulfamethoxazole (From Bactrim) Allergy (Severe, Verified 08/22/25 13:50) BURNING /ITCHING ALL MUCOUS MEMBRANES sulfur (From Sulfacet-R) Allergy (Severe, Verified 08/22/25 13:50) burning, itching trimethoprim (From Bactrim) Allergy (Severe, Verified 08/22/25 13:50) BURNING /ITCHING ALL MUCOUS MEMBRANES Medication List - Last Reconciled 08/22/25 by ELTON Freeman cholecalciferol (vitamin D3) 125 mcg PO DAILY ezetimibe 10 mg PO DAILY levothyroxine (Synthroid) 112 mcg PO DAILY metoprolol succinate ER 25 mg PO BEDTIME upadacitinib ER (Rinvoq) 15 mg PO DAILY Tobacco use date assessed: 03/14/25 Dental Screening Dental Screen Date: 03/14/25 HPI HPI Comments History of Present Illness Details 75-year-old female with history of hyper lipidemia, hypothyroidism, psoriatic arthritis, osteoporosis presenting to the office today for management of chronic conditions. Hyperlipidemia-due for lipid panel. On Zetia 10 mg daily Hypothyroidism-due for TSH, last level 1.16. On levothyroxine 112 mcg daily Psoriatic arthritis-following with [facility]. Started Rinvoq about 2 months ago with near immediate relief. No ongoing plaques or arthralgias Osteoporosis-last DEXA scan 08/2023 showing severe osteoporosis, lowest T-score-3.4 in the lumbar spine. Reports remote history of Fosamax usage which was never resumed following drug holiday. She does take vitamin-D. No weight- bearing exercise Concerns: Ongoing palpitations-has had intermittent palpitations ongoing for over 6 mo nths. Lasting sec to minutes. No associated lightheadedness, dyspnea, chest pains. She did have 72 hours Holter monitor showing supraventricular ectopy though low burden of 0.7%. She did have frequent PVCs with overall burden 3.9% with rare couplets, bigeminy, trigeminy. About 6 months ago, she was started on atenolol 25 mg with PCP at that time and states this did fully resolve symptoms but was only given the medication for 30 days. During a vacation in [place] several months ago, had an episode of palpitations with associated malaise and fatigue that lasted 2 hours but resolve with rest. Since then, has been happening intermittently, but no prolonged episodes. She states she did start taking beta-troy again about 3 weeks ago with some improvement but is still having intermittent episodes with malaise and fatigue. Reports symptoms are worse at bedtime. Health maintenance: Last colonoscopy 04/2025 with 10 year follow-up advised. Dr. Brunson. Recommending only on p.r.n. basis Last mammogram 06/2025 of 1 year follow-up advised Due for repeat DEXA scan ROS: see hpi EXAM: Constitutional - Awake and Alert, No apparent distress Eyes - PERRL Cardiovascular - S1S2, RRR, No edema. No PVC's on auscultation Respiratory - Normal lung expansion, Normal respiratory effort, No respiratory distress, CTA bilaterally Extremities - no calf tenderness bilaterally, no swelling Skin - Warm/Dry Neurological - Alert & oriented x3 Psychological - Appropriate affect [facility] Medical History (Updated 08/22/25 @ 14:39 by ELTON Freeman) Osteoporosis Incisional hernia Palpitations Psoriasis Nephrolithiasis Hyperlipidemia Hypothyroidism Surgical History History of hysterectomy History of bowel resection (1987) H/O total adrenalectomy (1987) History of pancreatectomy (1987) Hx of splenectomy (1987) H/O left nephrectomy (1987) History of colonoscopy (~11/09/14) Family History Mother No problems noted. Father No problems noted. Social History Household Members Other:: adult son Housing: House Are you a primary adult live in caregiver to a significant other at home: No Do you presently have visiting nurse or other home services: No Patient Tobacco Use Status: Former Tobacco user Tobacco use type: Cigarette e-Cigarette/Vaping Use: Former Use service: No Current occupational status: retired Cognitive needs: No Hearing needs: No Vision needs: Yes (reading glasses) Questionnaire Thrive Questionnaire Date Thrive assessed: 03/14/25 MAVIS-7 AMB Questionnaire MAVIS-7 Date MAVIS - 7 assessed: 03/14/25 Source: Developed by Drs. Lev Newsome, Meli Vidal, Edu Fernández and colleagues, with an educational destinee from [employer]. Physical exam (Primary Care) Vital Signs: Last Vital Signs Temp 97.8 F 08/22/25 13:55 Pulse 61 08/22/25 13:55 Resp 18 08/22/25 13:55 BP 132/70 08/22/25 13:55 Pulse Ox 96 08/22/25 13:55 Oxygen Delivery Method Room Air 08/22/25 13:55 BMI result Body Mass Index 34.8 Tobacco/Smoking Status: Tobacco use Status Tobacco use date assessed 03/14/25 08/22/25 13:52 Patient Tobacco Use Status Former Tobacco user 08/22/25 13:52 Tobacco use type Cigarette 08/22/25 13:52 e-Cigarette/Vaping Use Former Use 08/22/25 13:52 Thrive Assessment: Date of Thrive Assessment Date Thrive assessed 03/14/25 08/22/25 13:52 Coding Level of Care Code Est Pt Level 4 (71012) Complex EM visit Add On G2211 Diagnoses Osteoporosis M81.0 Hyperlipidemia E78.5 Hypothyroidism E03.9 PVCs (premature ventricular contractions) I49.3 Psoriasis L40.9 Assessment & Plan Assessment & Plan (1) Osteoporosis: Code(s): M81.0 - Age-related osteoporosis without current pathological fracture Category: Medical Plan: DEXA scan ordered. Discussed possibly resuming alendronate which he would like to see results of study prior to this. We will check vitamin-D level, continue supplementation. Recommend weight-bearing exercise (2) Hyperlipidemia: Code(s): E78.5 - Hyperlipidemia, unspecified Category: Medical Plan: Lipid panel ordered. Continue Zetia (3) Hypothyroidism: Comment: hx Ger's thyroiditis Code(s): E03.9 - Hypothyroidism, unspecified Category: Medical Plan: TSH with reflex free T4 ordered. Continue levothyroxine (4) PVCs (premature ventricular contractions): Code(s): I49.3 - Ventricular premature depolarization Category: Medical Plan: With ongoing significant symptoms despite beta-troy. We will trial discontinuing atenolol and replacing with Toprol 25 mg at bedtime. Echocardiogram ordered to evaluate for any structural abnormality. She is also referred to Cardiology given ongoing significant symptoms. Reviewed last Holter monitor. (5) Psoriasis: Code(s): L40.9 - Psoriasis, unspecified Category: Medical Plan: Much improved. Continue Rinvoq and follow up with Dermatology as scheduled Plan Follow-up in the office in 6 months, sooner if needed Orders: Orders CA echo transthoracic complete Today I49.3 - Ventricular premature depolarization, R00.2 - Palpitations Basic Metabolic Panel Today E03.9 - Hypothyroidism, unspecified, E78.5 - Hyperlipidemia, unspecified, I49.3 - Ventricular premature depolarization Lipid Panel Today E03.9 - Hypothyroidism, unspecified, E78.5 - Hyperlipidemia, unspecified, I49.3 - Ventricular premature depolarization TSH reflex Free T4 Today E03.9 - Hypothyroidism, unspecified, E78.5 - Hyperlipidemia, unspecified, I49.3 - Ventricular premature depolarization Vitamin D 25-OH Total Today M81.0 - Age-related osteoporosis without current pathological fracture XR DEXA axial skeleton Today M81.0 - Age-related osteoporosis without current pathological fracture Referrals Cardiology Referral I49.3 - Ventricular premature depolarization, R00.2 - Palpitations Medications: New metoprolol succinate ER 25 mg PO BEDTIME 90 tabs 1RF Discontinued atenolol Discontinued Reason: Doctor's Order 25 mg PO DAILY 90 days 90 tabs 0RF
[2025-08-22 13:55] VITALS: BP 132/70; PULSE 61; RESP 18; TEMP 36.6; O2SAT 96; BMI 34.8
--- OUTSIDE RECORDS SUMMARY | 2025-08-22 19:28 | XMS_ITS | Patient Health Record ---
[facility] Address [address] [place] [address] Care Team Providers Care Product Safety Coordinator Name Role Phone Brayden Akins MD Primary Care Provider Unavaila Cristobal Roger Unavailable [phone] Allergies Allergen (clinical drug ingredient) Drug/Non Drug Allergy documented on EMR Reaction Allergy Type Onset Date Status sulfa burning sensation, itchy Drug Allergy Active Reason For Referral No Information Medications Medication SIG (Take, Route, Fr equency, Duration) Notes Start Date End Date Status Humira 40 MG/0.8ML 0.8 Subcutaneous; Du ration: 30 day(s) Active Lovastatin 10 mg Act dejan Synthroid .112 mcg A ctive Problems Problem Type SNOMED Code ICD Code Onset Dates Problem Status W/U Status Risk Notes Problem Information temporarily unavailable Ingrowing Nail (703.0) Active confirmed Problem Information temporarily unavailable Ingrowing Nail (703.0) Active confirmed Plan Of Treatment Pending Test Test Name Order Date [id number] 08/27/2011 [id number] 11/09/2011 [id number] 11/26/2011 54128- Debride <25 sq cm 11/26/2011 73231- Debride <25 sq cm 09/18/2011 Insurance Providers Payer Name Payer Address Payer Phone Subscriber Number Group Number Insured Name Patient Relationship to Insured Coverage Start Date Coverage End Date [facility] [address] [place] [address] [id number] Jumana Turcios Self - patient is the insured Medical (General) History Medical History History ICD Code thyroid disorder psoriasis/eczema measles kidney disease back, hip, knee pain Surgical History Surgery Date(Month/Year) hysterectomy 2002 nephrectomy 1987 splenectomy 1988
--- OUTSIDE RECORDS SUMMARY | 2025-08-22 19:28 | XMS_ITS | Patient Health Record ---
Author Organization [facility] Address [address] [place] [address] Care Team Providers Care Journeyman Carpenter Name Role Phone JAKE, KARTIK Primary Care Provider Rony Stokes Jr Unavailable [phone] Allergies Allergen (clinical drug ingredient) Drug/Non Drug Allergy documented on EMR Reaction Allergy Type Onset Date Status Sulfacet-R Unknown Drug Allergy Active Results Component Value Reference Range Notes Pathology Reviewed date:04/16/2025 08:50:37 AM Interpretation: Performing Lab:[facility], [address] [place] [id number] Notes/Report: Reason For Referral No Information Medications Medication SIG (Take, Route, Fr equency, Duration) Notes Start Date End Date Status Skyrizi Pen 150 MG/ML Subcutaneous; Dura tion: 84 Days Active Ezetimibe 10 MG TAKE 1 TABLET BY SAV TH EVERY DAY Oral; Duration: 90 Days Acti ve Synthroid 112 MCG Orally Ac tive Vitamin D 1000 UNIT 1 tablet Orally Once a day Active Immunizations Vaccine Route Administration Date Status Comme nts Influenza Unknown 08/15/2024 Administered Problems Problem Type SNOMED Code ICD Code Onset Dates Problem Status W/U Status Risk Notes Problem Family History of Cancer of Colon (Situation) (219623734) Family history of colon cancer (V16.0) Active confirmed Problem Screening for malignant neoplasm of colon (734241707) Encounter for screening for malignant neoplasm of colon (Z12.11) Active confirmed Vital Signs Temperature 97.8 degrees Fahrenheit 03/19/2025 Blood pressure diastolic 01 mm Hg 03/19/2025 Height 59 in 03/19/2025 Blood pressure systolic 001 mm Hg 03/19/2025 Weight 168.2 lbs 03/19/2025 BMI 33.97 kg/m2 03/19/2025 Encounters Encounter Location Date Provider Diagnosis [facility] Outpatient [address], [place] [phone] 04/10/2025 Rony Brunson Jr Colon cancer screening Z12.11 ; Family history of colonic polyps Z83.719 and Colon polyps K63.5 [facility] [address] [place] [address] 03/19/2025 Rony Brunson Jr Encounter for screening for malignant neoplasm of colon Z12.11 Assessments Encounter Date Diagnosis (ICD Code) Assessment Notes Treatment Notes Treatment Clinical Notes Section Notes 04/10/2025 Colon cancer screening (ICD-10 - Z12.11) 04/10/2025 Family history of colonic polyps (ICD-10 - Z83.719) 03/19/2025 Encounter for screening for malignant neoplasm of colon (ICD-10 - Z12.11) We discussed colonoscopy today including risks and benefits of the procedure. She understands these and agrees to proceed. 04/10/2025 Colon polyps (ICD-10 - K63.5) Plan Of Treatment Future Test Test Name Order Date COLONOSCOPY 07/18/2014 COLONOSCOPY 03/19/2025 Insurance Providers Payer Name Payer Address Payer Phone Subscriber Number Group Number Insured Name Patient Relationship to Insured Coverage Start Date Coverage End Date MEDICARE OF [place] [address] [place] [address] [phone] [id number] BRANT ESPITIA Self - patient is the insured [address] [place] [address] [address] [place] [address] [id number] BRANT ESPITIA Self - patient is the insured Medical (General) History Medical History History ICD Code Colonoscopy 11/15, hyperplastic polyp Hypothyroidism with history of Ger 's thyroiditis nephrolithiasis status post pyelolithoto my Hyperlipidemia Psoriasis Palpitations, possibly starting atenolol shortly Surgical History Surgery Date(Month/Year) Incisional hernia satus post attempted repair, which was unsuccessful 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
== END 2025-08-22 14:31 | disposition home or self-care (01) ==
PROVIDERS: PCP Physician Assistant; Visit Provider Physician Assistant
DX: M81.0 Age-related osteoporosis without current pathological fracture (principal); E78.5 Hyperlipidemia, unspecified; E03.9 Hypothyroidism, unspecified; I49.3 Ventricular premature depolarization; L40.9 Psoriasis, unspecified

== ENCOUNTER → 2025-08-22 13:42 | Outpatient (BNVA) | payer MEDICARE, OTHER, SELFPAY | PROVIDERS: Visit Provider Physician Assistant | DX: M81.0 Age-related osteoporosis without current pathological fracture (principal); E78.5 Hyperlipidemia, unspecified; E03.9 Hypothyroidism, unspecified; I49.3 Ventricular premature depolarization; R00.2 Palpitations; L40.9 Psoriasis, unspecified; Z79.899 Other long term (current) drug therapy | CPT/HCPCS: 99212 ==

== ENCOUNTER 2025-08-29 07:54 | Outpatient (REF) | payer MEDICARE, OTHER, SELFPAY ==
--- OUTSIDE RECORDS SUMMARY | 2025-04-10 07:00 | XMS_ITS ---
Author Organization [facility] Address [address] [place] [address] Care Team Providers Care Brim Curler Name Role Phone JANET JOSEPH Primary Care Provider Rony Stokes Jr REASON FOR VISIT screening Encounters Encounter Location Date Provider Diagnosis [facility] [address] [place] [phone] 04/10/2025 Rony Brunson Jr Colon cancer screening [...] Notes * BRANT ESPITIADOB:1950 (75 yo F)Acc No.[id number]:04/10/2025 COLON WITH MAC Patient: Gris WOO BRANT Provider: Ranjit Brunson MD :1950 A ge:74 Y S ex:Female Date:04/10/2025 Address: [id number] Pcp:JANET JOSEPH Subjective: * Chief Complaints: * 1 . Screening. * Medical History: Objective: * Vitals: Assessment: * Assessment: 1. C olon cancer screening - Z12.11 (Primary) 2 . F amily history of colonic polyps - Z83.719 3 . C olon polyps - K63.5 Plan: * Treatment: * Procedure Codes: 4 5385 LESION REMOVAL COLONOSCOPY, Modifiers: PT , 0529F INTRVL 3+YRS PTS CLNSCP DOCD * * The named appointment provid er may or may not be the originator of this progress note, and it is not deemed complete until electronically signed by the appointment provider. Sign off status: Pending * Provider: Ranjit Brunson MD Date: 0 04/10/2025 Generated for Jie park/Radha/Nabilitting on: 1 07:57 AM EDT
--- OUTSIDE RECORDS SUMMARY | 2025-08-29 07:57 | XMS_ITS | Patient Health Record ---
Author [facility] Address [address] [place] [address] Care Team Providers Care Cfo Controller Name Role Phone Brayden Akins MD Primary Care Provider Unavaila Cristobal Roger Unavailable [phone] Allergies Allergen (clinical drug ingredient) Drug/Non Drug [...] Treatment Pending Test Test Name Order Date [id number] 08/27/2011 [id number] 11/09/2011 [id number] 11/26/2011 83213- Debride <25 sq cm 11/26/2011 77733- Debride <25 sq cm 09/18/2011 Insurance Providers Payer Name Payer Address Payer Phone Subscriber Number Group Number Insured Name Patient Relationship to Insured Coverage Start Date Coverage End Date [facility] [address] [place] [address] [id number] Jumana Turcios Self - patient is the insured Medical (General) History Medical History History ICD Code thyroid disorder psoriasis/eczema measles kidney disease back, hip, knee pain Surgical History Surgery Date(Month/Year) hysterectomy 2002 nephrectomy 1987 splenectomy 1988
--- OUTSIDE RECORDS SUMMARY | 2025-08-29 07:57 | XMS_ITS | Patient Health Record ---
Author Organization [facility] Address [address] [place] [address] Care Team Providers Care Control Room Tender Name Role Phone JAKE, KARTIK Primary Care Provider Rony Stokes Jr Unavailable Allergies Allergen (clinical drug ingredient) Drug/Non Drug Allergy documented on EMR Reaction Allergy Type Onset Date Status Sulfacet-R Unknown Drug Allergy Active Results Component Value Reference Range Notes Pathology Reviewed date:04/16/2025 08:50:37 AM Interpretation: Performing Lab:[facility], [address] [place] [id number] Notes/Report: Reason For Referral No Information Medications [...] Family History of Cancer of Colon (Situation) (218947327) Family history of colon cancer (V16.0) Active confirmed Problem Screening for malignant neoplasm of colon (646150402) Encounter for screening for malignant neoplasm of colon (Z12.11) Active confirmed Vital Signs Temperature 97.8 degrees Fahrenheit 03/19/2025 Blood pressure diastolic 01 mm Hg 03/19/2025 Height 59 in 03/19/2025 Blood pressure systolic 001 mm Hg 03/19/2025 Weight 168.2 lbs 03/19/2025 BMI 33.97 kg/m2 03/19/2025 Encounters Encounter Location Date Provider Diagnosis [facility] Outpatient [address] [place], [place] [phone] 04/10/2025 Rony Brunson Jr Colon cancer screening Z12.11 ; Family history of colonic polyps Z83.719 and Colon polyps K63.5 [facility] [address] [place] [address] 03/19/2025 Rony Brunson Jr Encounter for screening [...] OF [place] [address] [place] [address] [id number] BRANT ESPITIA Self - patient is the insured [address] [place] [address] [address] [place] [address] [id number] BRANT ESPITIA Self - patient is the [...]
[2025-08-29 08:11] LABS: MANUAL DIFF FLAG NO
[2025-08-29 09:00] LABS: Hematocrit 40.5 % (37.0-47.0); Hemoglobin 13.1 g/dl (12.0-16.0); Imm Gran Abs Auto 0.03 X10*3/uL (0.00-0.03); Imm Gran Pct Auto 0.3 % (0.0-0.4); Lymphocytes Absolute Auto 4.7 X10*3/uL (1.2-4.9); Mean Corpuscular HGB Conc 32.3 g/dl (31.0-35.0); Mean Corpuscular Hemoglobin 31.0 pg (27.0-33.0); Mean Corpuscular Volume 95.7 fL (80.0-98.0); NRBC Abs Auto 0.000 X10*3/uL (0.0-0.012); NRBC Pct Auto 0.0 /100WBC (0.0-0.2); Platelet Count 424 X10*3/uL (160-400); Red Blood Count 4.23 X10*6/uL (4.20-5.50); White Blood Count 9.1 X10*3/uL (4.8-10.8)
[2025-08-29 09:35] LABS: Alanine Aminotransferase 27 U/L (0-31); Albumin Level 4.4 g/dL (3.5-5.0); Alkaline Phosphatase 85 U/L (39-117); Anion Gap 10 (12-20); Aspartate Amino Transferase 36 U/L (5-31); Blood Urea Nitrogen 18 mg/dL (9-16); Calcium 9.3 mg/dL (8.4-10.2); Carbon Dioxide 26 mmol/L (22-29); Chloride 109 mmol/L (96-108); Cholesterol 262 mg/dL (<200); Estimated Glomerular Filt Rate > 60; HDL Cholesterol 73 mg/dL (>40); Potassium 4.1 mmol/L (3.3-5.1); Sodium 141 mmol/L (135-145); Total Protein 7.5 g/dL (6.5-8.0); Triglycerides 180 mg/dL (<150)
[2025-08-29 10:57] LABS: Reflex LDLD? No
[2025-09-01 10:19] LABS: TS Negative Control Passed; TS Panel A 0; TS Panel B 0; TS Positive Control Passed; TSpotTB Negative (Negative)
== END 2025-08-29 07:55 | disposition home or self-care (01) ==
LOC: HO.LAB 07:54
PROVIDERS: Absent Provider Physician Assistant; PCP Physician Assistant; Visit Provider Physician Assistant
DX: Z11.1 Encounter for screening for respiratory tuberculosis (principal); M81.0 Age-related osteoporosis without current pathological fracture; I49.3 Ventricular premature depolarization; E78.5 Hyperlipidemia, unspecified; E03.9 Hypothyroidism, unspecified; Z79.899 Other long term (current) drug therapy
CPT/HCPCS: 36415; 80053; 80061; 82306; 84443; 85025; 86481

== ENCOUNTER → 2025-09-20 09:58 | Outpatient (REF) | payer MEDICARE, OTHER, SELFPAY ==
--- OUTSIDE RECORDS SUMMARY | 2025-04-10 06:00 | XMS_ITS ---
Author Organization [facility] Address [address] [place] [address] Care Team Providers Care Collar Folder Operator Name Role Phone JANET JOSEPH Primary Care Provider Rony Stokes Jr REASON FOR VISIT screening Encounters Encounter Location Date Provider Diagnosis [facility] [address] [place] [phone] 04/10/2025 Rony Brunson Jr Colon cancer screening Z12.11 ; Family history of colonic polyps Z83.719 and Colon polyps K63.5 Assessments Encounter Date Diagnosis (ICD Code) Assessment Notes Treatment Notes Treatment Clinical Notes Section Notes 04/10/2025 Colon cancer screening (ICD-10 - Z12.11) 04/10/2025 Family history of colonic polyps (ICD-10 - Z83.719) 04/10/2025 Colon polyps (ICD-10 - K63.5) Plan Of Treatment No Information Progress Notes * BRANT ESPITIADOB:1950 (75 yo F)Acc No.[id number]:04/10/2025 COLON WITH MAC Patient: Gris WOO BRANT Provider: Ranjit Brunson MD :1950 A ge:74 Y S ex:Female Date:04/10/2025 Address[id number] Pcp:JANET JOSEPH Subjective: * Chief Complaints: * S creening Assessment: * Assessment: 1. C olon cancer screening - Z12.11 (Primary) 2 . F amily history of colonic polyps - Z83.719 3 . C olon polyps - K63.5 Plan: * Procedure Codes: 4 5385 LESION REMOVAL COLONOSCOPY, Modifiers: PT 0529F INTRVL 3+YRS PTS CLNSCP DOCD Billing Information: * Procedure Codes: 88105 LESION REMOVAL COLONOSCOPY. Modifiers: PT 0529F INTRVL 3+YRS PTS CLNSCP DOCD. * The named appointment provid er may or may not be the originator of this progress note, and it is not deemed complete until electronically signed by the appointment provider. Sign off status: Pending * Provider: Ranjit Brunson MD Date: 0 04/10/2025 Generated for Jie park/Radha/Nabilitting on: 11/20/2024 02:39 PM EST
--- NOTE | 2025-09-20 10:00 | CA_ITS ---
Transthoracic Echocardiogram Patient (Last, First, Middle): Jumana Turcios A Gender: Female Date of : 1950 Age: 75 Procedure Date: 09/20/2025 Procedure Type: Transthoracic Echocardiogram Location: OP Height: 147.32 cm Weight: 75.75 kg BSA: 1.69 m2 Heart Rate: bpm BP: 132 / 70 mmHg Golf Course Patroller: DARYN Referring MD: Diane CONDE Symptoms: I49.3 - Ventricular premature depolarization Study Quality: Adequate ECG Rhythm: Sinus Conclusions: - The left ventricular systolic function is normal. The calculated ejection fraction is 64% by biplane method. - No obvious valvular pathology seen on this study. Findings Left Ventricle Normal left ventricular cavity size. There is normal left ventricular wall thickness. The left ventricular systolic function is normal. The calculated ejection fraction is 64% by biplane method. There is no evidence of regional wall motion abnormalities. Diastolic function is normal for age. Right Ventricle Normal right ventricular cavity size and systolic function. Atria Both atria are normal in size. Aortic Valve There is a normal trileaflet aortic valve. There is mild calcification of the aortic valve. There is no aortic valve stenosis. There is no aortic valve regurgitation. Mitral Valve There is mild anterior mitral leaflet thickening. There is trace mitral valve regurgitation. There is no mitral valve stenosis. Pulmonic Valve The pulmonic valve is likely normal. Tricuspid Valve There is mild tricuspid valve regurgitation. There is no evidence of pulmonary hypertension. Great Vessels The asc aorta and aortic arch are normal in size. Venous The inferior vena cava is normal in size and collapses greater than 50% with inspiration. Pericardium/Pleural There is no evidence of pericardial effusion. Prior Study Comparison No prior study available for comparison. Recommendations, Care & Conclusions No obvious valvular pathology seen on this study. Measurements 2D Linear Measurements IVSd: 0.86 0.6-0.9/0.6-1.0 cm LVIDd: 4.69 3.9-5.3/4.2-5.9 cm LVIDd Index: 2.78 2.4-3.2/2.2-3.1 cm/m2 LVIDs: 2.63 2.0-3.6 cm LVPWd: 0.86 0.7-1.1 cm LA Diam: 3.40 2.7-3.8/3.0-4.0 cm LAIDs Index: 2.01 1.5-2.3 cm/m2 LV Mass: 165.85 67-162/88-224 g LV Mass Index: 98.14 43-95/49-115 g/m2 LVOT Diam: 1.90 3.0+(-)1.3 cm 2D Systolic Function EF 4C: 58.80 >55% EF 2C: 67.30 >55% EF BiP: 63.60 >55% Mitral Valve MV Pk E: 0.61 MV PK A: 0.83 MV Decel Time: 212.00 E/A: 0.70 E'Lateral: 7.18 E'Medial: 5.55 E/E' Med: 11.00 E/E' Lat: 8.50 PHT: 62.00 MVA PHT: 3.55 Decel [place]: 2.87 Aortic Valve AoV Pk Stephan: 1.36 AoV Mn Stephan: 1.00 AoV VTI: 0.35 AoV Pk Grad: 7.00 Aov Mn Grad: 4.00 STEVE Cont.VTI: 1.79 LVOT LVOT Pk Stephan: 0.91 LVOT Mn Stephan: 0.64 LVOT VTI: 0.22 LVOT Pk Grad: 3.00 LVOT Mn Grad: 2.00 LVOT Diam: 1.90 LVOT Area: 2.84 Diastolic Function MV Pk E: 0.61 MV Pk A: 0.83 E/A: 0.70 E'Medial: 5.55 E/E' Med: 11.00 E' Laterial: 7.18 E/E' Lat: 8.50 Right Ventricle TAPSE (mm): 22.00 TVS' Stephan: 7.94 Tricuspid Valve TR Pk Stephan: 2.63 TR Pk Grad: 28.00 RA Press: 3.00 RVSP: 31.00 Great Vessels Aorta Sinus of Valsalva: 2.67 2.0-3.5 cm Ao Asc: 3.10 2.1-3.4 cm Ao Arch: 3.00 Pulmonary Veins Pulm Vein S/D 1.00 Updated in Other Vendor System with Status of Final Axel De La Garza MD electronically signed on 09/21/2025 11:44:11 AM with status of Final
--- OUTSIDE RECORDS SUMMARY | 2025-09-20 14:39 | XMS_ITS | Patient Health Record ---
Author Organization [facility] Address [address] [place] [address] Care Team Providers Care Account Executive Healthcare Name Role Phone JAKE, KARTIK Primary Care Provider Rony Stokes Jr Unavailable Allergies Allergen (clinical drug ingredient) Drug/Non Drug Allergy documented on EMR Reaction Allergy Type Onset Date Status Sulfacet-R Unknown Drug Allergy Active Results Component Value Reference Range Notes Pathology Reviewed date:04/16/2025 08:50:37 AM Interpretation: Performing Lab:[facility], [address] [place] [phone] Notes/Report: Reason For Referral No Information Medications Medication SIG (Take, Route, Frequency, Duration) Notes Start Date End Date Status Skyrizi Pen 150 MG/ML Solution Auto-injector Subcutaneous; Duration: 84 Days Active Ezetimibe 10 MG Tablet TAKE 1 TABLET BY MOUTH EVERY DAY Oral; Duration: 90 Days Active Synthroid 112 MCG Tablet Orally Active Vitamin D 1000 UNIT Tablet 1 tablet Orally Once a day Active Immunizations Vaccine Route Administration Date Status Comme nts Influenza Unknown 08/15/2024 Administered Social History Social History Additional Details Category Social Info Options Details Miscellaneous: Marital status: Occupation: retired Problems Problem Type SNOMED Code ICD Code Onset Dates Problem Status W/U Status Risk Notes Problem Family History of Cancer of Colon (Situation) (775661577) Family history of colon cancer (V16.0) Active confirmed Problem Screening for malignant neoplasm of colon (047984103) Encounter for screening for malignant neoplasm of colon (Z12.11) Active confirmed Vital Signs Temperature 97.8 degrees Fahrenheit 03/19/2025 Blood pressure diastolic 01 mm Hg 03/19/2025 Height 59 in 03/19/2025 Blood pressure systolic 001 mm Hg 03/19/2025 Weight 168.2 lbs 03/19/2025 BMI 33.97 kg/m2 03/19/2025 Encounters Encounter Location Date Provider Diagnosis [facility] Outpatient [address] [place], [place] [phone] 04/10/2025 Rony Brunson Jr Colon cancer screening Z12.11 ; Family history of colonic polyps Z83.719 and Colon polyps K63.5 [facility] [address] [place] [address] 03/19/2025 Rony Brunson Jr Encounter for screening [...] OF [place] [address] [place] [address] [id number] BRANT ESPITIA Self - patient is the insured [address] [place] [address] [address] [place] [address] [id number] BRANT ESPITIA Self - patient is the insured 4 Medical (General) History Medical History History ICD Code Colonoscopy 11/15, hyperplastic polyp Hypothyroidism with history of Ger 's thyroiditis nephrolithiasis status post pyelolithoto my Hyperlipidemia Psoriasis Palpitations, possibly starting atenolol shortly Surgical History Surgery Date(Month/Year) left nephrectomy splenectomy distal pancreatectomy adrenalectomy 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
--- OUTSIDE RECORDS SUMMARY | 2025-09-20 14:39 | XMS_ITS | Patient Health Record ---
[facility] Address [address] [place] [address] Care Team Providers Care Dispensary Technician Name Role Phone Brayden Akins MD Primary Care Provider Unavaila Cristobal Roger Unavailable [phone] Allergies Allergen (clinical drug ingredient) Drug/Non Drug [...] Treatment Pending Test Test Name Order Date [id number] 08/27/2011 [id number] 11/09/2011 [id number] 11/26/2011 45997- Debride <25 sq cm 11/26/2011 58730- Debride <25 sq cm 09/18/2011 Insurance Providers Payer Name Payer Address Payer Phone Subscriber Number Group Number Insured Name Patient Relationship to Insured Coverage Start Date Coverage End Date [facility] [address] [place] [address] [id number] Jumana Turcios Self - patient is the insured Medical (General) History Medical History History ICD Code thyroid disorder psoriasis/eczema measles kidney disease back, hip, knee pain Surgical History Surgery Date(Month/Year) hysterectomy 2002 nephrectomy 1987 splenectomy 1988
== END ==
LOC: HO.CARD 09:58
PROVIDERS: PCP Physician Assistant; Visit Provider Physician Assistant
DX: I49.3 Ventricular premature depolarization (principal); R00.2 Palpitations
CPT/HCPCS: 93306

== ENCOUNTER → 2025-09-20 10:00 | Outpatient (BNV) | payer MEDICARE, OTHER, SELFPAY | PROVIDERS: PCP Physician Assistant; Visit Provider Internal Medicine | DX: R94.31 Abnormal electrocardiogram [ECG] [EKG] (principal) | CPT/HCPCS: 93306 ==